=== PATIENT | female | born 1955 | race Caucasian/White ===

== ENCOUNTER 2018-06-26 12:56 | Inpatient (IN) ==
[2018-06-26] MEDS ORDERED: Labetalol HCl Inj 100 MG/20 ML Vial IV.PUSH ONE ×2 (13:19→16:15)
--- NOTE | 2018-06-26 13:26 | ED ---
HPI General Chief complaint: Weakness Stated complaint: confusion Time Seen by Provider: 06/26/18 13:12 History of Present Illness HPI narrative: This is a 63-year-old female who presents via EMS. According to report for the past week the patient has been confused, had a decreased appetite and generalized weakness. The patient lives with her . The patient is currently complaining of generalized weakness. She has no other focal complaints. He is noted to be hypertensive. She is noted to smell strongly of urine. She is unable to provide much additional history. Her primary care physician is Dr. Gallegos. Symptoms are moderate to severe, duration 1 week, no obvious aggravating or alleviating factors. Related Data Home Medications Medication Instructions Recorded Confirmed No Known Home Medications 06/26/18 06/26/18 Allergies Allergy/AdvReac Type Severity Reaction Status Date / Time codeine Allergy ALELRGY Verified 06/26/18 13:19 Review of Systems ROS Unobtainable ROS Unobtainable: other (History is limited secondary to patient condition) [facility] Medical History Medical History Medical history unknown (Acute) Social History Social History Second Hand Smoke Exposure: No Smoking Status: Cognitive impairment Tobacco Type: Cigarettes How Often Do You Have a Drink Containing Alcohol: Unable to Obtain Recent Travel in [facility] within the Last 8 Weeks: No Recent Out of Country Travel within the Last 8 Weeks: No Exam Narrative Exam Narrative: GENERAL: This is a well-developed well-nourished female in no acute distress. She is alert to person. She does not know what city she is in. She does not know what year it is. She knows her birthdate. SKIN: Warm and dry. No pressure ulcers noted. HEAD: Atraumatic. Normocephalic. EYES: Pupils equal and round. No scleral icterus. No injection or drainage. ENT: No nasal bleeding or discharge. Mucous membranes pink and moist. NECK: Trachea midline. No JVD. CARDIOVASCULAR: Regular rate and rhythm. No murmur appreciated. RESPIRATORY: No accessory muscle use. Clear to auscultation. Breath sounds equal bilaterally. GASTROINTESTINAL: Abdomen soft, non-tender, nondistended. Hepatic and splenic margins not palpable. MUSCULOSKELETAL: No obvious deformities. No clubbing. No cyanosis. No edema. NEUROLOGICAL: Awake and alert. No obvious cranial nerve deficits. Motor grossly within normal limits. Normal speech. The patient is able to move all extremities with no difficulty. Course Initial Documented Vital Signs Temperature 98.7 F 06/26/18 13:09 Respiratory Rate 18 06/26/18 13:09 Blood Pressure 184/83 H 06/26/18 13:09 Pulse Oximetry 98 06/26/18 13:09 Last Documented Vital Signs Temperature 98.8 F 06/26/18 14:43 Pulse Rate 71 06/26/18 14:43 Respiratory Rate 18 06/26/18 14:43 Blood Pressure 145/86 H 06/26/18 14:43 Pulse Oximetry 98 06/26/18 13:40 Medical Decision Making CAMILA Attestation CAMILA supervised visit: Yes Attestation: I, Dr. Bergman, have reviewed the advance practice practitioner's documentation and am in agreement, met with the patient face to face, made the diagnosis, and the medical decision making was done by me. *My assessment and Findings: Patient seen and evaluated with PA, please see PA notes for further details. She is here because her states that she has been eating and drinking well, more disoriented and weak than usual, and more lethargic than usual. She smells strongly of urine. It appears that he is now not able to take care of her at home, worsened within the last few days. Altered mental status workup was initiated including cat scanning. Planning to hydrate, control blood pressure, and admit for further evaluation and treatment. MDM Narrative Medical decision making narrative: hypertensive urgency.Patient was placed on ECG monitoring pulse oximetry. A 12-lead EKG was obtained. Lab work, CT the brain, chest x-ray, cath urine specimen obtained. The patient is noted to be hypertensive, 20 mg labetalol administered. The patient's lab work is been reviewed. Potassium is 2.9, 40 mEq oral potassium and 10 mEq IV potassium ordered. GFR is 38. Urinalysis is consistent with UTI, IV Rocephin initiated. CT the brain reveals no acute abnormalities. The patient's blood pressure improved. At this point time the plan would be to admit the patient for altered mental status, UTI, hypokalemia, hypertensive urgency. Discussed with Dr. Toussaint who was agreeable with admission. Medical Screen Exam Complete: Yes Emergency Medical Condition: Yes Differential Diagnosis Differential Diagnosis: UTI, CVA, TIA, hypertensive emergency, electrolyte abnormality, hypoglycemia, dehydration, sepsis, delerium Lab Data Result diagrams: 06/26/18 13:30 06/26/18 13:35 Lab Results 06/26/18 06/26/18 06/26/18 Range/Units 13:30 13:30 13:35 WBC 7.9 (4.0-11.0) th/mm3 RBC 3.85 L (4.00-5.30) mil/mm3 Hgb 12.0 (11.6-15.3) gm/dL Hct 36.0 (35.0-46.0) % MCV 93.6 (80.0-100.0) fL MCH 31.3 (27.0-34.0) pg MCHC 33.4 (32.0-36.0) % RDW 14.4 (11.6-17.2) % Plt Count 172 (150-450) th/mm3 MPV 7.8 (7.0-11.0) fL Neut % (Auto) 70.8 H (16.0-70.0) % Lymph % (Auto) 17.7 (9.0-44.0) % [place] % (Auto) 8.7 H (0.0-8.0) % Eos % (Auto) 1.9 (0.0-4.0) % Baso % (Auto) 0.9 (0.0-2.0) % Neut # (Auto) 5.6 (1.8-7.7) th/mm3 Lymph # (Auto) 1.4 (1.0-4.8) th/mm3 [place] # (Auto) 0.7 (0.0-0.9) th/mm3 Eos # (Auto) 0.2 (0.0-0.4) th/mm3 Baso # (Auto) 0.1 (0.0-0.2) th/mm3 WBC Differential . Differential Comment Auto diff final Sodium 142 (136-145) meq/L Potassium 2.9 L* (3.5-5.1) meq/L Chloride 108 H (98-107) meq/L Carbon Dioxide 26.8 (21.0-32.0) meq/L Anion Gap 7 (5-15) meq/L BUN 19 H (7-18) mg/dL Creatinine 1.39 H (0.50-1.00) mg/dL Estimated GFR 38 L (>89) mL/min Random Glucose 83 (74-106) mg/dL Lactic Acid (0.4-2.0) mmol/L Calcium 8.4 L (8.5-10.1) mg/dL Total Bilirubin 0.8 (0.2-1.0) mg/dL AST 8 L (15-37) U/L ALT 10 (10-53) U/L Alkaline Phosphatase 84 (45-117) U/L Ammonia (11-32) mcmol/L Total Creatine Kinase 24 L (26-192) U/L Troponin I 0.02 (0.02-0.05) ng/mL Total Protein 6.9 (6.4-8.2) g/dL Albumin 3.0 L (3.4-5.0) g/dL Urine Color Yellow (Yellw/Straw) Urine Clarity Hazy H (Clear) Urine pH 6.0 (5.0-8.5) Ur Specific [place] 1.013 (1.002-1.035) Urine Protein Negative (Neg-Trace) mg/dL Urine Glucose (UA) Negative (Negative) mg/dL Urine Ketones Negative (Negative) mg/dL Urine Occult Blood Small H (Negative) Urine Nitrate Negative (Negative) Urine Bilirubin Negative (Negative) Urine Urobilinogen Less than 2 (Less than 2) mg/dL Ur Leukocyte Esterase Moderate H (Negative) Urine RBC 2 (0-3) /hpf Urine WBC 26 H (0-5) /hpf Ur Squamous Epith Cells 1 (0-5) /hpf Urine Bacteria Many H (None) /hpf Urine Mucus Few H (Occasional) /lpf Urine Yeast Few H (None) /hpf Micro UA Comment Cath-culture ind Ur Microscopic Review Not Reportable Urine Culture Comments Cath-cult indicated 06/26/18 06/26/18 Range/Units 13:35 13:35 WBC (4.0-11.0) th/mm3 RBC (4.00-5.30) mil/mm3 Hgb (11.6-15.3) gm/dL Hct (35.0-46.0) % MCV (80.0-100.0) fL MCH (27.0-34.0) pg MCHC (32.0-36.0) % RDW (11.6-17.2) % Plt Count (150-450) th/mm3 MPV (7.0-11.0) fL Neut % (Auto) (16.0-70.0) % Lymph % (Auto) (9.0-44.0) % [place] % (Auto) (0.0-8.0) % Eos % (Auto) (0.0-4.0) % Baso % (Auto) (0.0-2.0) % Neut # (Auto) (1.8-7.7) th/mm3 Lymph # (Auto) (1.0-4.8) th/mm3 [place] # (Auto) (0.0-0.9) th/mm3 Eos # (Auto) (0.0-0.4) th/mm3 Baso # (Auto) (0.0-0.2) th/mm3 WBC Differential Differential Comment Sodium (136-145) meq/L Potassium (3.5-5.1) meq/L Chloride (98-107) meq/L Carbon Dioxide (21.0-32.0) meq/L Anion Gap (5-15) meq/L BUN (7-18) mg/dL Creatinine (0.50-1.00) mg/dL Estimated GFR (>89) mL/min Random Glucose (74-106) mg/dL Lactic Acid 0.6 (0.4-2.0) mmol/L Calcium (8.5-10.1) mg/dL Total Bilirubin (0.2-1.0) mg/dL AST (15-37) U/L ALT (10-53) U/L Alkaline Phosphatase (45-117) U/L Ammonia 13 (11-32) mcmol/L Total Creatine Kinase (26-192) U/L Troponin I (0.02-0.05) ng/mL Total Protein (6.4-8.2) g/dL Albumin (3.4-5.0) g/dL Urine Color (Yellw/Straw) Urine Clarity (Clear) Urine pH (5.0-8.5) Ur Specific [place] (1.002-1.035) Urine Protein (Neg-Trace) mg/dL Urine Glucose (UA) (Negative) mg/dL Urine Ketones (Negative) mg/dL Urine Occult Blood (Negative) Urine Nitrate (Negative) Urine Bilirubin (Negative) Urine Urobilinogen (Less than 2) mg/dL Ur Leukocyte Esterase (Negative) Urine RBC (0-3) /hpf Urine WBC (0-5) /hpf Ur Squamous Epith Cells (0-5) /hpf Urine Bacteria (None) /hpf Urine Mucus (Occasional) /lpf Urine Yeast (None) /hpf Micro UA Comment Ur Microscopic Review Urine Culture Comments Imaging Data Radiologist's impression: Chest X-Ray 06/26/18 13:19 CONCLUSION: Mildly prominent cardiac silhouette. No other acute cardiopulmonary disease identified. Head CT 06/26/18 13:19 CONCLUSION: 1. No acute intracranial findings. 2. Prominent chronic ischemic change. . Discharge Plan Discharge Disposition Patient Disposition: 30 Still Patient Discharge Condition Condition: Stable Discharge Details Diagnosis: Altered mental status, Acute UTI, Hypokalemia, Hypertensive urgency Physicians Team ED Provider: Jet Bergman ED Midlevel Provider: Jayesh Ku Primary Care Provider: Ko Gallegos Rxs /Orders / Referrals /Forms Prescriptions: No Action No Known Home Medications RF: 0 Status ED Status: Admitted Patient
[2018-06-26 13:59] LABS: Baso # (Auto) 0.1 th/mm3 (0.0-0.2); Baso % (Auto) 0.9 % (0.0-2.0); Eos # (Auto) 0.2 th/mm3 (0.0-0.4); Eos % (Auto) 1.9 % (0.0-4.0); Lymph # (Auto) 1.4 th/mm3 (1.0-4.8); Lymph % (Auto) 17.7 % (9.0-44.0); Mean Corpuscular HGB Conc 33.4 % (32.0-36.0); Mean Corpuscular Hemoglobin 31.3 pg (27.0-34.0); Mean Corpuscular Volume 93.6 fL (80.0-100.0); Mean Platelet Volume 7.8 fL (7.0-11.0); Mono # (Auto) 0.7 th/mm3 (0.0-0.9); Mono % (Auto) 8.7 % (0.0-8.0); Neut # (Auto) 5.6 th/mm3 (1.8-7.7); Neut % (Auto) 70.8 % (16.0-70.0); Platelet Count 172 th/mm3 (150-450); Red Blood Count 3.85 mil/mm3 (4.00-5.30); Red Cell Distribution Width 14.4 % (11.6-17.2); White Blood Count 7.9 th/mm3 (4.0-11.0)
[2018-06-26 14:30] LABS: Bacteria,Urine Many /hpf; Bilirubin,Urine Negative (Negative); Clarity,Urine Hazy (Clear); Color,Urine Yellow (Yellw/Straw); Glucose,Urine (UA) Negative (Negative); Leukocyte Esterase,Urine Moderate (Negative); Mucus,Urine Few /lpf (Occasional); Nitrite,Urine Negative (Negative); Specific Gravity,Urine 1.013 (1.002-1.035); Squamous Epithelial Cell,Urine 1 /hpf (0-5)
--- NOTE | 2018-06-26 14:30 | CT ---
EXAM DATE: 06/26/2018 2:16 PM EDT AGE/SEX: 63 years / Female INDICATIONS: Altered mental status. CLINICAL DATA: This is the patient's initial encounter. Patient reports that signs and symptoms have been present for 1 day and indicates a pain score of 0/10. MEDICAL/SURGICAL HISTORY: None. None. RADIATION DOSE: 56.35 CTDI (mGy) COMPARISON: No prior exams available for comparison. TECHNIQUE: CT of the head without contrast. Using automated exposure control and adjustment of the mA and/or kV according to patient size, radiation dose was kept as low as reasonably achievable to ob tain optimal diagnostic quality images. DICOM format image data is available electronically for revi ew and comparison. FINDINGS: Cerebrum: The ventricles are normal for age. No evidence of midline shift, mass lesion, hemorrhage or acute infarction. No extraaxial fluid collections are seen. Prominent symmetric periventricular w yolande matter hypodensity indicating chronic small vessel ischemic change. Encephalomalacia of the left cerebellar hemisphere posteriorly. Posterior Fossa: The cerebellum and brainstem are intact. The 4th ventricle is midline. The cerebe llopontine angle is unremarkable. Extracranial: The visualized portion of the orbits is intact. Skull: The calvaria is intact. No evidence of skull fracture. CONCLUSION: 1. No acute intracranial findings. 2. Prominent chronic ischemic change. . Electronically signed by: Zion Herbert MD 06/26/2018 2:29 PM EDT
[2018-06-26 14:31] LABS: Alanine Aminotransferase 10 U/L (10-53); Alkaline Phosphatase 84 U/L (45-117); Anion Gap 7 meq/L (5-15); Aspartate Aminotransferase 8 U/L (15-37); Blood Urea Nitrogen 19 mg/dL (7-18); Calcium 8.4 mg/dL (8.5-10.1); Carbon Dioxide 26.8 meq/L (21.0-32.0); Chloride 108 meq/L (98-107); Glomerular Filtration Rate 38 mL/min (>89); Glucose,Random 83 mg/dL (74-106); Sodium 142 meq/L (136-145); Total Protein 6.9 g/dL (6.4-8.2); Troponin I 0.02 ng/mL (0.02-0.05)
[2018-06-26 14:38] LABS: Creatine Kinase 24 U/L (26-192); Potassium 2.9 meq/L (3.5-5.1)
[2018-06-26] MEDS ORDERED: Potassium Chlor 10 mEq Premix 10 MEQ/100 ML PIGGYBACK IV.SIG ONE (14:41)
--- NOTE | 2018-06-26 14:48 | XR ---
EXAM DATE: 06/26/2018 2:31 PM EDT AGE/SEX: 63 years / Female INDICATIONS: Hypertension, weakness. CLINICAL DATA: This is the patient's initial encounter. Patient reports that signs and symptoms have been present for 2 days and indicates a pain score of 5/10. MEDICAL/SURGICAL HISTORY: Myocardial infarction. Cardiovascular disease, stroke. None. COMPARISON: No prior exams available for comparison. FINDINGS: Single AP view of the chest. Cardiac silhouette is mildly prominent. Lungs are clear. No evidence of pleural effusion or pneumothorax. CONCLUSION: Mildly prominent cardiac silhouette. No other acute cardiopulmonary disease identified. Electronically signed by: Zion Herbert MD 06/26/2018 2:46 PM EDT
[2018-06-26] MEDS ORDERED: Potassium Chloride 25 MEQ Effervescent Tablet PO ONE (14:58)
--- NOTE | 2018-06-26 16:14 | P.HP ---
History of Present Illness Primary Care Physician: Ko Gallegos MD History of Present Illness: 63-year-old white female being admitted for acute metabolic encephalopathy. History is limited as the patient is a poor historian. Obtained mainly from emergency room staff and . Patient was in her usual state of health until earlier this week when her says that she started being unable to ambulate with him despite her cane. Says that she now does not want to ambulate at all. Reportedly has a decreased appetite. Emergency room staff, she smelled of urine. Normally at baseline says she walks with him with a cane but has not done so for the past week. He denies headaches expressing any pain such as chest pain. Patient herself denies having any dysuria. says the patient has not had a major stroke 8 years ago. They are from [place] and they plan to go back there where they have more support with 2 of their grown children. Family history is unable to be obtained as the patient herself is an unreliable historian due to her chronic mental impairment. tells me that the patient used to be on medications for chronic medical conditions but says she was discontinued off of those in [place]. Emergency department patient was found to be hypertensive with a systolic greater than 220. Hypokalemic at 2.9. CT head was negative. Chest x-ray was straight and enlarged cardiac silhouette. They gave labetalol with improvement in her blood pressure which rebounded high again when I saw her with a diastolic around 115. Review of Systems All other systems reviewed negative except as stated in HPI [facility] - History History Provided By: Patient - Medical History Medical History: Medical History (Last Updated 06/26/18 @ 16:15 by Salinas Palumbo MD) CAD (coronary artery disease) CVA (cerebral vascular accident) Medical history unknown Pressure ulcer - Social History I have reviewed the patient's Social History: Yes - Tobacco History Second Hand Smoke Exposure: No Tobacco Use In Past 30 Days: No Smoking Status: Cognitive impairment Tobacco Type: Cigarettes - Alcohol History How Often Do You Have a Drink Containing Alcohol: Unable to Obtain - Travel History Recent Travel in the [place] Within the Last 8 Weeks: No Recent Travel Out of the Country Within the Last 8 Weeks: No - Immunization History Tetanus Immunization: Unable to Assess Hx Influenza Vaccine This Season: Unable to Assess Medications and Allergies Active Medications: Active Medications Labetalol HCl (Trandate Inj) 10 mg IV.PUSH ONCE ONE Stop: 06/26/18 16:16 Sodium Chloride (Ns Flush) 2 ml IV.FLUSH PRN PRN PRN Reason: FLUSH AFTER USING IV ACCESS Sodium Chloride (Ns Flush) 2 ml IV.FLUSH BID ALEC Allergies Allergy/AdvReac Type Severity Reaction Status Date / Time codeine Allergy ALELRGY Verified 06/26/18 13:19 Home Medications Medication Instructions Recorded Confirmed Type No Known Home Medications 06/26/18 06/26/18 History Exam Vital signs: Vital Signs 06/26/18 13:09 06/26/18 13:21 06/26/18 13:40 Temperature 98.7 F 98.7 F Pulse Rate 79 Respiratory Rate 18 18 Blood Pressure 184/83 H Pulse Oximetry 98 98 98 06/26/18 14:43 Temperature 98.8 F Pulse Rate 71 Respiratory Rate 18 Blood Pressure 145/86 H Pulse Oximetry Intake & Output 06/25/18 06/26/18 06/26/18 18:59 06:59 18:59 Intake Total 100 / 100 Balance 100 / 100 Intake: IV 100 / 100 Rocephin Inj 1,000 MG In NS Inj 100 / 100 100 ML @ 200 mls/hr IV.SIG ONCE ONE Rx#:[id number] Narrative: VS: afebrile GENERAL: Lying in bed, slowed responses, mild distress secondary to coldness SKIN: Warm and dry. EYES: Pupils equal and round. No scleral icterus. No injection or drainage. ENT: No nasal bleeding or discharge. CARDIOVASCULAR: Regular rate and rhythm. no murmurs RESPIRATORY: No accessory muscle use. Clear to auscultation. Breath sounds equal bilaterally. GASTROINTESTINAL: Abdomen soft, non-tender, nondistended. Extremities: No clubbing, cyanosis, or edema. No obvious deformities. MUSCULOSKELETAL: grossly intact ROM with 3/5 strength in upper and lower extremities proximally; adequate muscle bulk and tone for age and habitus NEUROLOGICAL: Awake and alert. No obvious cranial nerve deficits. No facial droop nor slurred speech noted. PSYCHIATRIC: Insight compromised. Oriented only to person, not oriented to place or time. Results - Labs CBC & Chem 7: 06/26/18 13:30 06/26/18 13:35 Labs: Laboratory Results - last 24 hr 06/26/18 06/26/18 06/26/18 13:30 13:30 13:35 WBC 7.9 RBC 3.85 L Hgb 12.0 Hct 36.0 MCV 93.6 MCH 31.3 MCHC 33.4 RDW 14.4 Plt Count 172 MPV 7.8 Neut % (Auto) 70.8 H Lymph % (Auto) 17.7 [place] % (Auto) 8.7 H Eos % (Auto) 1.9 Baso % (Auto) 0.9 Neut # (Auto) 5.6 Lymph # (Auto) 1.4 [place] # (Auto) 0.7 Eos # (Auto) 0.2 Baso # (Auto) 0.1 WBC Differential . Differential Comment Auto diff final Sodium 142 Potassium 2.9 L* Chloride 108 H Carbon Dioxide 26.8 Anion Gap 7 BUN 19 H Creatinine 1.39 H Estimated GFR 38 L Random Glucose 83 Lactic Acid Calcium 8.4 L Total Bilirubin 0.8 AST 8 L ALT 10 Alkaline Phosphatase 84 Ammonia Total Creatine Kinase 24 L Troponin I 0.02 Total Protein 6.9 Albumin 3.0 L Urine Color Yellow Urine Clarity Hazy H Urine pH 6.0 Ur Specific [place] 1.013 Urine Protein Negative Urine Glucose (UA) Negative Urine Ketones Negative Urine Occult Blood Small H Urine Nitrate Negative Urine Bilirubin Negative Urine Urobilinogen Less than 2 Ur Leukocyte Esterase Moderate H Urine RBC 2 Urine WBC 26 H Ur Squamous Epith Cells 1 Urine Bacteria Many H Urine Mucus Few H Urine Yeast Few H Micro UA Comment Cath-culture ind Ur Microscopic Review Not Reportable Urine Culture Comments Cath-cult indicated 06/26/18 06/26/18 13:35 13:35 WBC RBC Hgb Hct MCV MCH MCHC RDW Plt Count MPV Neut % (Auto) Lymph % (Auto) [place] % (Auto) Eos % (Auto) Baso % (Auto) Neut # (Auto) Lymph # (Auto) [place] # (Auto) Eos # (Auto) Baso # (Auto) WBC Differential Differential Comment Sodium Potassium Chloride Carbon Dioxide Anion Gap BUN Creatinine Estimated GFR Random Glucose Lactic Acid 0.6 Calcium Total Bilirubin AST ALT Alkaline Phosphatase Ammonia 13 Total Creatine Kinase Troponin I Total Protein Albumin Urine Color Urine Clarity Urine pH Ur Specific [place] Urine Protein Urine Glucose (UA) Urine Ketones Urine Occult Blood Urine Nitrate Urine Bilirubin Urine Urobilinogen Ur Leukocyte Esterase Urine RBC Urine WBC Ur Squamous Epith Cells Urine Bacteria Urine Mucus Urine Yeast Micro UA Comment Ur Microscopic Review Urine Culture Comments - Imaging Impressions Chest X-Ray 06/26/18 13:19 CONCLUSION: Mildly prominent cardiac silhouette. No other acute cardiopulmonary disease identified. Head CT 06/26/18 13:19 CONCLUSION: 1. No acute intracranial findings. 2. Prominent chronic ischemic change. . Caprini VTE Risk Assessment Caprini VTE Risk Assessment: Moderate/High Risk (score >= 2) Caprini Risk Assessment Model: Point Value = 1 Point Value = 2 Point Value = 3 Point Value = 5 Age 41-60 Minor surgery BMI > 25 kg/m2 Swollen legs Varicose veins or History of unexplained or recurrent spontaneous Oral contraceptives or hormone replacement Sepsis (< 1 month) Serious lung disease, including pneumonia (< 1 month) Abnormal pulmonary function Acute myocardial infarction Congestive heart failure (< 1 month) History of inflammatory bowel disease Medical patient at bed rest Age 61-74 Arthroscopic surgery Major open surgery (> 45 min) Laparoscopic surgery (> 45 min) Malignancy Confined to bed (> 72 hours) Immobilizing plaster cast Central venous access Age >= 75 History of VTE Family history of VTE Factor V Leiden Prothrombin [id number] Lupus anticoagulant Anticardiolipin antibodies Elevated serum homocysteine Heparin-induced thrombocytopenia Other congenital or acquired thrombophilia Stroke (< 1 month) Elective arthroplasty Hip, pelvis, or leg fracture Acute spinal cord injury (< 1 month) Prophylaxis Regimen: Total Risk Factor Score Risk Level Prophylaxis Regimen 0-1 Low Early ambulation 2 Moderate Order ONE of the following: *Sequential Compression Device (SCD) *Heparin 5000 units SQ BID 3-4 Higher Order ONE of the following medications: *Heparin 5000 units SQ TID *Enoxaparin/Lovenox 40 mg SQ daily (WT < 150 kg, CrCl > 30 mL/min) *Enoxaparin/Lovenox 30 mg SQ daily (WT < 150 kg, CrCl > 10-29 mL/min) *Enoxaparin/Lovenox 30 mg SQ BID (WT < 150 kg, CrCl > 30 mL/min) AND/OR *Sequential Compression Device (SCD) 5 or more Highest Order ONE of the following medications: *Heparin 5000 units SQ TID (Preferred with Epidurals) *Enoxaparin/Lovenox 40 mg SQ daily (WT < 150 kg, CrCl > 30 mL/min) *Enoxaparin/Lovenox 30 mg SQ daily (WT < 150 kg, CrCl > 10-29 mL/min) *Enoxaparin/Lovenox 30 mg SQ BID (WT < 150 kg, CrCl > 30 mL/min) AND *Sequential Compression Device (SCD) Assessment and Plan - Plan 63-year-old white female being admitted for metabolic encephalopathy Encephalopathy Generalized weakness Multifactorial with acute metabolic and hypertensive elements involved superimposed upon chronic impairment from the patient's prior strokes. We will give IV Vasotec as needed, starting low-dose scheduled Coreg for now -f/u UC, continue rocephin for now -VS -PT/ST/OT eval hypokalemia Possible acute kidney injury Unknown baseline, creatinine 1.39, gentle IV hydration, recheck in a.m. -Replacing potassium intravenously and .p.o., recheck BMP in a.m. Coronary artery disease/hypertension Starting low-dose baby aspirin, and low-dose Coreg as well as nighttime Lipitor -Given enlarged cardiac silhouette and lack of cardiac meds per knowledge, will obtain echocardiogram to look for any heart failure elements History of strokes Chronic cognitive impairment -hx of CVAs, ordering b12 and tsh ordered Starting baby aspirin as above and Lipitor
[2018-06-26 17:43] LABS: Thyroid Stimulating Hormone 0.883 uIU/mL (0.358-3.740); Vitamin B12 217 pg/mL (193-986)
[2018-06-26] MEDS: Potassium Chloride Inj 10 MEQ in Sod Chloride 0.9% Inj 1,000 ML IV.CONT SCH (17:48)
[2018-06-27 07:00] LABS: Calcium 8.1 mg/dL (8.5-10.1); Carbon Dioxide 24.2 meq/L (21.0-32.0); Potassium 3.3 meq/L (3.5-5.1)
--- NOTE | 2018-06-27 13:40 | P.PNIM ---
Subjective Interval history: Discussed with the patient's at bedside. She remains very weak. Not eating much. reports at baseline she does not talk much. Patient answers simple yes or no questions. She has no complaints. Physical Exam Vital signs: Vital Signs 06/26/18 13:40 06/26/18 14:43 06/26/18 16:36 Temperature 98.8 F Pulse Rate 71 80 Respiratory Rate 18 18 Blood Pressure 145/86 H 152/89 H Pulse Oximetry 98 06/26/18 17:39 06/26/18 20:00 06/27/18 00:00 Temperature 98.7 F 98.7 F 98.6 F Pulse Rate 71 69 71 Respiratory Rate 16 18 18 Blood Pressure 145/84 H 175/78 H 179/81 H Pulse Oximetry 96 99 96 06/27/18 01:30 06/27/18 04:00 06/27/18 08:00 Temperature 98.7 F 98.3 F Pulse Rate 68 71 Respiratory Rate 18 18 Blood Pressure 162/80 H 150/98 H 181/86 H Pulse Oximetry 95 95 06/27/18 12:00 Temperature 98.5 F Pulse Rate 73 Respiratory Rate 18 Blood Pressure 227/103 H Pulse Oximetry 96 Intake & Output 06/26/18 06/27/18 06/27/18 18:59 06:59 18:59 Intake Total 200 / 200 Balance 200 / 200 Weight 70.3 kg Intake: IV 200 / 200 KCl 10 mEq Premix Inj 10 meq In 100 / 100 100 ml @ 100 mls/hr IV.SIG ONCE ONE Rx#:[id number] Rocephin Inj 1,000 MG In NS Inj 100 / 100 100 ML @ 200 mls/hr IV.SIG ONCE ONE Rx#:[id number] Other: # Incontinent Voids 2 Narrative: GENERAL: Patient appears much older than stated age. CARDIOVASCULAR: Normal rate and regular rhythm without murmurs, gallops, or rubs. RESPIRATORY: Good respiratory efforts. Breath sounds equal and clear to auscultation bilaterally. GASTROINTESTINAL: Abdomen soft, non-tender, non-distended. Normal active bowel sounds MUSCULOSKELETAL: Extremities without cyanosis, or edema. NEURO: Alert & Oriented to self. Profound generalized weakness PSYCH: Flat affect. Results - Labs CBC & Chem 7: 06/26/18 13:30 06/27/18 05:50 Laboratory Results - last 24 hr 06/26/18 06/26/18 06/26/18 13:30 13:30 13:35 WBC 7.9 RBC 3.85 L Hgb 12.0 Hct 36.0 MCV 93.6 MCH 31.3 MCHC 33.4 RDW 14.4 Plt Count 172 MPV 7.8 Neut % (Auto) 70.8 H Lymph % (Auto) 17.7 Runnels % (Auto) 8.7 H Eos % (Auto) 1.9 Baso % (Auto) 0.9 Neut # (Auto) 5.6 Lymph # (Auto) 1.4 Runnels # (Auto) 0.7 Eos # (Auto) 0.2 Baso # (Auto) 0.1 WBC Differential . Differential Comment Auto diff final Sodium 142 Potassium 2.9 L* Chloride 108 H Carbon Dioxide 26.8 Anion Gap 7 BUN 19 H Creatinine 1.39 H Estimated GFR 38 L Random Glucose 83 Lactic Acid Calcium 8.4 L Magnesium Total Bilirubin 0.8 AST 8 L ALT 10 Alkaline Phosphatase 84 Ammonia Total Creatine Kinase 24 L Troponin I 0.02 Total Protein 6.9 Albumin 3.0 L Vitamin B12 217 TSH 0.883 Urine Color Yellow Urine Clarity Hazy H Urine pH 6.0 Ur Specific Regina 1.013 Urine Protein Negative Urine Glucose (UA) Negative Urine Ketones Negative Urine Occult Blood Small H Urine Nitrate Negative Urine Bilirubin Negative Urine Urobilinogen Less than 2 Ur Leukocyte Esterase Moderate H Urine RBC 2 Urine WBC 26 H Ur Squamous Epith Cells 1 Urine Bacteria Many H Urine Mucus Few H Urine Yeast Few H Micro UA Comment Cath-culture ind Ur Microscopic Review Not Reportable Urine Culture Comments Cath-cult indicated 06/26/18 06/26/18 06/26/18 13:35 13:35 13:55 WBC RBC Hgb Hct MCV MCH MCHC RDW Plt Count MPV Neut % (Auto) Lymph % (Auto) Runnels % (Auto) Eos % (Auto) Baso % (Auto) Neut # (Auto) Lymph # (Auto) Runnels # (Auto) Eos # (Auto) Baso # (Auto) WBC Differential Differential Comment Sodium Potassium Chloride Carbon Dioxide Anion Gap BUN Creatinine Estimated GFR Random Glucose Lactic Acid 0.6 Calcium Magnesium Total Bilirubin AST ALT Alkaline Phosphatase Ammonia 13 Total Creatine Kinase Troponin I Total Protein Albumin Vitamin B12 Cancelled TSH Cancelled Urine Color Urine Clarity Urine pH Ur Specific Regina Urine Protein Urine Glucose (UA) Urine Ketones Urine Occult Blood Urine Nitrate Urine Bilirubin Urine Urobilinogen Ur Leukocyte Esterase Urine RBC Urine WBC Ur Squamous Epith Cells Urine Bacteria Urine Mucus Urine Yeast Micro UA Comment Ur Microscopic Review Urine Culture Comments 06/27/18 06/27/18 05:50 05:50 WBC RBC Hgb Hct MCV MCH MCHC RDW Plt Count MPV Neut % (Auto) Lymph % (Auto) Runnels % (Auto) Eos % (Auto) Baso % (Auto) Neut # (Auto) Lymph # (Auto) Runnels # (Auto) Eos # (Auto) Baso # (Auto) WBC Differential Differential Comment Sodium 143 Potassium 3.3 L Chloride 111 H Carbon Dioxide 24.2 Anion Gap 8 BUN 18 Creatinine 1.19 H Estimated GFR 46 L Random Glucose 84 Lactic Acid Calcium 8.1 L Magnesium 1.9 Total Bilirubin AST ALT Alkaline Phosphatase Ammonia Total Creatine Kinase Troponin I Total Protein Albumin Vitamin B12 TSH Urine Color Urine Clarity Urine pH Ur Specific Regina Urine Protein Urine Glucose (UA) Urine Ketones Urine Occult Blood Urine Nitrate Urine Bilirubin Urine Urobilinogen Ur Leukocyte Esterase Urine RBC Urine WBC Ur Squamous Epith Cells Urine Bacteria Urine Mucus Urine Yeast Micro UA Comment Ur Microscopic Review Urine Culture Comments Microbiology 06/26/18 13:30 Catheterized Urine Urine Culture - Preliminary gram negative rods 06/26/18 13:30 Blood - Peripheral Aerobic Blood Culture - Preliminary No growth in 1 day 06/26/18 13:30 Blood - Peripheral Anaerobic Blood Culture - Preliminary No growth in 1 day 06/26/18 13:30 Blood - Peripheral Aerobic Blood Culture - Preliminary No growth in 1 day 06/26/18 13:30 Blood - Peripheral Anaerobic Blood Culture - Preliminary No growth in 1 day - Imaging Impressions Chest X-Ray 06/26/18 13:19 CONCLUSION: Mildly prominent cardiac silhouette. No other acute cardiopulmonary disease identified. Head CT 06/26/18 13:19 CONCLUSION: 1. No acute intracranial findings. 2. Prominent chronic ischemic change. . Assessment and Plan - Plan 63-year-old white female admitted for acute metabolic encephalopathy Encephalopathy Generalized weakness Multifactorial with acute metabolic and hypertensive elements involved superimposed upon chronic impairment from the patient's prior strokes.. -f/u UC, continue Rocephin for now -VS -PT/ST/OT eval Gram-negative UTI: - Continue Rocephin. Follow cultures. hypokalemia Possible acute kidney injury Unknown baseline, creatinine 1.39, gentle IV hydration,. -Replace K. Follow-up BMP in a.m. Coronary artery disease/hypertension Started on low-dose baby aspirin, and low-dose Coreg as well as nighttime Lipitor -Given enlarged cardiac silhouette and lack of cardiac meds per knowledge, echocardiogram pending to look for any heart failure elements History of strokes Chronic cognitive impairment. At baseline the patient does not interact much. reports she has been declining lately. -hx of CVAs, b12 and tsh ordered Starting baby aspirin as above and Lipitor -May have CVA induced dementia. - Physical therapy/OT to evaluate. GI prophylaxis: PPI. Stool softener PRN constipation. DVT PPx: Lovenox Discharge Planning: May need SNF placement.
[2018-06-27] MEDS: Lisinopril 10 MG Tablet PO SCH ×2 (14:18→21:00)
--- NOTE | 2018-06-27 15:33 | ECHRPT ---
Indication: CARDIOMYOPATHY CONCLUSIONS The left ventricular systolic function is normal with an estimated ejection fraction in the range of 60-65%. Normal left ventricular size. Wall thickness is measured at the upper limits of normal. No regional wall motion abnormalities are present. Mild to moderate mitral valve regurgitation. BP: / HR: Rhythm: Sinus MEASUREMENTS (Male / Female) Normal Values Technical Quality:Good 2D ECHO LV Diastolic Diameter PLAX 6.3 cm 4.2 - 5.9 / 3.9 - 5.3 cm LV Systolic Diameter PLAX 4.4 cm IVS Diastolic Thickness 1.2 cm 0.6 - 1.0 / 0.6 - 0.9 cm LVPW Diastolic Thickness 1.2 cm 0.6 - 1.0 / 0.6 - 0.9 cm LV Relative Wall Thickness 0.4 RV Internal Dim ED PLAX 2.4 cm LVOT Diameter 1.8 cm LA Systolic Diameter LX 3.1 cm 3.0 - 4.0 / 2.7 - 3.8 cm LV Ejection Fraction MOD 4C 62.8 % LV Ejection Fraction 4C AL 65.1 % M-MODE Aortic Root Diameter MM 2.5 cm LA Systolic Diameter MM 3.0 cm LA Ao Ratio MM 1.2 AV Cusp Separation MM 1.7 cm DOPPLER AV Peak Velocity 172.0 cm/s AV Peak Gradient 11.8 mmHg LVOT Peak Velocity 114.0 cm/s LVOT Peak Gradient 5.2 mmHg AV Area Cont Eq pk 1.7 cm MV Peak Velocity 236.0 cm/s MV Peak Gradient 22.3 mmHg MV Mean Velocity 120.0 cm/s MV Mean Gradient 7.0 mmHg MV Area PHT 1.7 cm Mitral E Point Velocity 89.8 cm/s Mitral A Point Velocity 171.0 cm/s Mitral E to A Ratio 0.5 PV Peak Velocity 84.2 cm/s PV Peak Gradient 2.8 mmHg FINDINGS LEFT VENTRICLE Doppler parameters are consistent with impaired left ventricular relaxtion (grade 1 diastolic dysfun ction). The left ventricular systolic function is normal with an estimated ejection fraction in the range of 60-65%. Normal left ventricular size. Wall thickness is measured at the upper limits of normal. No regional wall motion abnormalities are present. RIGHT VENTRICLE Normal right ventricular size and systolic function. LEFT ATRIUM The left atrial size is normal. RIGHT ATRIUM The right atrial size is normal. ATRIAL SEPTUM Normal atrial septal thickness without atrial level shunting by limited color doppler interrogation. AORTA The aortic root and proximal ascending aorta are normal in size on limited imaging. MITRAL VALVE Structurally normal mitral valve. [id number] mitral valve regurgitation. AORTIC VALVE Trileaflet aortic valve. No aortic valve stenosis or regurgitation. TRICUSPID VALVE Structurally normal tricuspid valve. No tricuspid valve stenosis or regurgitation. PULMONARY VALVE The pulmonary valve is not well visualized. VESSELS The inferior vena cava is normal in size. PERICARDIUM No pericardial effusion. Hiwot Tillman MD (Electronically Signed) Final Date:27 June 2018 15:32
[2018-06-27] MEDS: Potassium Chloride Inj 10 MEQ in Sod Chloride 0.9% Inj 1,000 ML IV.CONT SCH (17:17)
--- NOTE | 2018-06-27 22:18 | ECG ---
Date Performed: 06/26/2018 Time Performed: 13:57:27 PTAGE: 63 years EKG: Sinus rhythm POSSIBLE LEFT ATRIAL ENLARGEMENT LEFT VENTRICULAR HYPERTROPHY AND ST-T CHANGE ABNORMAL ECG NO PREVIOUS TRACING DOCTOR: Hiwot Tillman Interpretating Date/Time 06/27/2018 22:12:42
[2018-06-28 07:03] LABS: Calcium 8.2 mg/dL (8.5-10.1); Potassium 3.5 meq/L (3.5-5.1)
[2018-06-28] MEDS: Lisinopril 10 MG Tablet PO SCH ×2 (08:06→21:45)
--- NOTE | 2018-06-28 13:29 | P.PNIM ---
Subjective Interval history: No acute issues overnight. Still not eating much. Blood pressure uncontrolled. Physical Exam Vital signs: Vital Signs 06/27/18 16:00 06/27/18 20:00 06/28/18 01:00 Temperature 98.8 F 98.7 F Pulse Rate 70 63 Respiratory Rate 18 18 Blood Pressure 203/94 H 134/76 129/67 Pulse Oximetry 96 98 06/28/18 04:00 06/28/18 08:00 Temperature 98.5 F 98.1 F Pulse Rate 65 62 Respiratory Rate 18 18 Blood Pressure 157/78 H 210/91 H Pulse Oximetry 95 97 Intake & Output 06/27/18 06/28/18 06/28/18 18:59 06:59 18:59 Intake Total 1105 / 1105 Balance 1105 / 1105 Weight 71.2 kg Intake: IV 1105 / 1105 KCl Inj 10 MEQ In NS Inj 1,000 1005 / 1005 ML @ 42 mls/hr IV.CONT .[id number] [facility] Rx#:[id number] Rocephin Inj 1,000 MG In NS Inj 100 / 100 100 ML @ 200 mls/hr IV.SIG Q24H [facility] Rx#:[id number] Other: # Incontinent Voids 2 Narrative: GENERAL: Patient appears much older than stated age. CARDIOVASCULAR: Normal rate and regular rhythm without murmurs, gallops, or rubs. RESPIRATORY: Good respiratory efforts. Breath sounds equal and clear to auscultation bilaterally. GASTROINTESTINAL: Abdomen soft, non-tender, non-distended. Normal active bowel sounds MUSCULOSKELETAL: Extremities without cyanosis, or edema. NEURO: Alert & Oriented to self. Profound generalized weakness PSYCH: Flat affect. Results - Labs CBC & Chem 7: 06/26/18 13:30 06/28/18 06:01 Laboratory Results - last 24 hr 06/28/18 06:01 Sodium 145 Potassium 3.5 Chloride 114 H Carbon Dioxide 21.0 Anion Gap 10 BUN 16 Creatinine 1.14 H Estimated GFR 48 L Random Glucose 84 Calcium 8.2 L Microbiology 06/26/18 13:30 Blood - Peripheral Aerobic Blood Culture - Preliminary No growth in 2 days 06/26/18 13:30 Blood - Peripheral Anaerobic Blood Culture - Preliminary 06/26/18 13:30 Blood - Peripheral Aerobic Blood Culture - Preliminary No growth in 2 days 06/26/18 13:30 Blood - Peripheral Anaerobic Blood Culture - Preliminary No growth in 2 days 06/26/18 13:30 Catheterized Urine Urine Culture - Final Klebsiella pneumoniae Assessment and Plan - Plan 63-year-old white female admitted for acute metabolic encephalopathy Encephalopathy Generalized weakness Multifactorial with acute metabolic and hypertensive elements involved superimposed upon chronic impairment from the patient's prior strokes.. -f/u UC, continue Rocephin for now -VS -PT/ST/OT eval Gram-negative UTI: - Continue Rocephin. Follow cultures. hypokalemia Possible acute kidney injury Unknown baseline, creatinine 1.39, gentle IV hydration,. -Replace K. Follow-up BMP in a.m. Coronary artery disease/hypertension Started on low-dose baby aspirin, and low-dose Coreg as well as nighttime Lipitor -Blood pressure uncontrolled. Increase lisinopril to 20 mg twice daily. Continue Coreg. - 2D echocardiogram unremarkable. History of strokes Chronic cognitive impairment. At baseline the patient does not interact much. reports she has been declining lately. 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 - Physical therapy/OT following GI prophylaxis: PPI. Stool softener PRN constipation. DVT PPx: Lovenox Discharge Planning: Will need SNF placement.
[2018-06-28] MEDS: Potassium Chloride Inj 10 MEQ in Sod Chloride 0.9% Inj 1,000 ML IV.CONT SCH (17:23)
[2018-06-29 07:27] LABS: Hematocrit 33.6 % (35.0-46.0); Hemoglobin 11.6 gm/dL (11.6-15.3); Mean Corpuscular HGB Conc 34.5 % (32.0-36.0); Mean Corpuscular Hemoglobin 31.6 pg (27.0-34.0); Mean Corpuscular Volume 91.7 fL (80.0-100.0); Mean Platelet Volume 8.1 fL (7.0-11.0); Platelet Count 164 th/mm3 (150-450); Red Blood Count 3.66 mil/mm3 (4.00-5.30); Red Cell Distribution Width 14.1 % (11.6-17.2); White Blood Count 8.9 th/mm3 (4.0-11.0)
[2018-06-29 07:45] LABS: Calcium 8.3 mg/dL (8.5-10.1); Carbon Dioxide 22.9 meq/L (21.0-32.0); Potassium 3.4 meq/L (3.5-5.1)
[2018-06-29] MEDS: Lisinopril 10 MG Tablet PO SCH (08:53)
--- NOTE | 2018-06-29 12:34 | P.PNIM ---
Subjective Interval history: 63-year-old white female being admitted for acute metabolic encephalopathy. History is limited as the patient is a poor historian. Obtained mainly from emergency room staff and . Patient was in her usual state of health until earlier this week when her says that she started being unable to ambulate with him despite her cane. Says that she now does not want to ambulate at all. Reportedly has a decreased appetite. Emergency room staff, she smelled of urine. Normally at baseline says she walks with him with a cane but has not done so for the past week. He denies headaches expressing any pain such as chest pain. Patient herself denies having any dysuria. says the patient has not had a major stroke 8 years ago. They are from [place] and they plan to go back there where they have more support with 2 of their grown children. Family history is unable to be obtained as the patient herself is an unreliable historian due to her chronic mental impairment. tells me that the patient used to be on medications for chronic medical conditions but says she was discontinued off of those in [place]. Emergency department patient was found to be hypertensive with a systolic greater than 220. Hypokalemic at 2.9. CT head was negative. Chest x-ray was straight and enlarged cardiac silhouette. They gave labetalol with improvement in her blood pressure which rebounded high again when I saw her with a diastolic around 115. 9-15 Discussed with the patient's at bedside. She remains very weak. Not eating much. reports at baseline she does not talk much. Patient answers simple yes or no questions. She has no complaints. 9-16 No acute issues overnight. Still not eating much. Blood pressure uncontrolled. 9-17 BLOOD PRESSURE NOT AT GOAL DW RN AND PT TODAY WILL NEED MORE MEDICATIONS [place] NEED SNF [place] RN AND PT AND CM AND FAMILY ADD NORVASC 5MG PO DAILY ADD PRN CATAPRES Physical Exam Vital signs: Vital Signs 06/28/18 16:00 06/28/18 20:00 06/29/18 00:00 Temperature 98.5 F 98.7 F 98.5 F Pulse Rate 58 L 56 L 58 L Respiratory Rate 18 20 20 Blood Pressure 160/80 H 153/82 H 144/95 H Pulse Oximetry 95 97 97 06/29/18 04:00 06/29/18 08:00 Temperature 98.2 F 98.2 F Pulse Rate 60 64 Respiratory Rate 18 17 Blood Pressure 169/81 H 191/88 H Pulse Oximetry 96 95 Intake & Output 06/28/18 06/29/18 06/29/18 18:59 06:59 18:59 Intake Total 1105 / 1105 480 / 480 Output Total 300 / 300 Balance 1105 / 1105 180 / 180 Weight 73.8 kg Intake: IV 1105 / 1105 KCl Inj 10 MEQ In NS Inj 1,000 1005 / 1005 ML @ 42 mls/hr IV.CONT .[id number] [facility] Rx#:[id number] Rocephin Inj 1,000 MG In NS Inj 100 / 100 100 ML @ 200 mls/hr IV.SIG Q24H [facility] Rx#:[id number] Oral 480 / 480 Output: Urine 300 / 300 Other: # Incontinent Voids 1 1 Date of Last Bowel Movement 06/28/18 Narrative: GENERAL: Patient appears much older than stated age. CARDIOVASCULAR: Normal rate and regular rhythm without murmurs, gallops, or rubs. S1, S2 NO S3 OR S4 RESPIRATORY: Good respiratory efforts. Breath sounds equal and clear to auscultation bilaterally. GASTROINTESTINAL: Abdomen soft, non-tender, non-distended. Normal active bowel sounds OBESE MUSCULOSKELETAL: Extremities without cyanosis, or edema. NEURO: Alert & Oriented to self. Profound generalized weakness PSYCH: Flat affect. Results - Labs CBC & Chem 7: 06/29/18 06:32 06/29/18 06:32 Laboratory Results - last 24 hr 06/29/18 06/29/18 06:32 06:32 WBC 8.9 RBC 3.66 L Hgb 11.6 Hct 33.6 L MCV 91.7 MCH 31.6 MCHC 34.5 RDW 14.1 Plt Count 164 MPV 8.1 Sodium 142 Potassium 3.4 L Chloride 112 H Carbon Dioxide 22.9 Anion Gap 7 BUN 16 Creatinine 1.12 H Estimated GFR 49 L Random Glucose 89 Calcium 8.3 L Microbiology 06/26/18 13:30 Blood - Peripheral Aerobic Blood Culture - Preliminary No growth in 3 days 06/26/18 13:30 Blood - Peripheral Anaerobic Blood Culture - Preliminary gram positive cocci 06/28/18 10:54 Blood - Peripheral Aerobic Blood Culture - Preliminary No growth in 1 day 06/28/18 10:54 Blood - Peripheral Anaerobic Blood Culture - Preliminary No growth in 1 day 06/26/18 13:30 Blood - Peripheral Aerobic Blood Culture - Preliminary No growth in 3 days 06/26/18 13:30 Blood - Peripheral Anaerobic Blood Culture - Preliminary No growth in 3 days 06/26/18 13:30 Catheterized Urine Urine Culture - Final Klebsiella pneumoniae - Imaging Chest X-Ray 06/26/18 13:19 CONCLUSION: Mildly prominent cardiac silhouette. No other acute cardiopulmonary disease identified. Head CT 06/26/18 13:19 CONCLUSION: 1. No acute intracranial findings. 2. Prominent chronic ischemic change. . - Procedures NONE Assessment and Plan - Plan 63-year-old white female admitted for acute metabolic encephalopathy Encephalopathy Generalized weakness Multifactorial with acute metabolic and hypertensive elements involved superimposed upon chronic impairment from the patient's prior strokes.. -f/u UC, continue Rocephin for now -VS -PT/ST/OT eval Gram-negative UTI: KLEBSIELLA PNEUMONIAE - SWITCH TO CIPRO - SWITCH TO CIPRO AT DC Follow cultures. hypokalemia Possible acute kidney injury Unknown baseline, creatinine 1.39, gentle IV hydration,. -Replace K. Follow-up BMP in a.m. Coronary artery disease/hypertension Started on low-dose baby aspirin, and low-dose Coreg as well as nighttime Lipitor -Blood pressure uncontrolled. Increase lisinopril to 20 mg twice daily. Continue Coreg. - 2D echocardiogram unremarkable. History of strokes Chronic cognitive impairment. At baseline the patient does not interact much. reports she has been declining lately. 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 - Physical therapy/OT following GI prophylaxis: PPI. Stool softener PRN constipation. DVT PPx: Lovenox WILL NEED SNF Code Status: FULL CODE Discussed Condition With: RN AND PT AND CM AND FAMILY Discharge Planning: DC TO SNF TODAY
--- NOTE | 2018-06-29 12:40 | P.DS ---
Date of admission: 06/26/18 15:54 Primary care physician: Ko Gallegos MD Attending physician on discharge: Alfa John Anticipated date of discharge: 06/29/18 Brief History from admission: 63-year-old white female being admitted for acute metabolic encephalopathy. History is limited as the patient is a poor historian. Obtained mainly from emergency room staff and . Patient was in her usual state of health until earlier this week when her says that she started being unable to ambulate with him despite her cane. Says that she now does not want to ambulate at all. Reportedly has a decreased appetite. Emergency room staff, she smelled of urine. Normally at baseline says she walks with him with a cane but has not done so for the past week. He denies headaches expressing any pain such as chest pain. Patient herself denies having any dysuria. says the patient has not had a major stroke 8 years ago. They are from [place] and they plan to go back there where they have more support with 2 of their grown children. Family history is unable to be obtained as the patient herself is an unreliable historian due to her chronic mental impairment. tells me that the patient used to be on medications for chronic medical conditions but says she was discontinued off of those in [place]. Emergency department patient was found to be hypertensive with a systolic greater than 220. Hypokalemic at 2.9. CT head was negative. Chest x-ray was straight and enlarged cardiac silhouette. They gave labetalol with improvement in her blood pressure which rebounded high again when I saw her with a diastolic around 115. Patient update on day of discharge: 63-year-old white female being admitted for acute metabolic encephalopathy. History is limited as the patient is a poor historian. Obtained mainly from emergency room staff and . Patient was in her usual state of health until earlier this week when her says that she started being unable to ambulate with him despite her cane. Says that she now does not want to ambulate at all. Reportedly has a decreased appetite. Emergency room staff, she smelled of urine. Normally at baseline says she walks with him with a cane but has not done so for the past week. He denies headaches expressing any pain such as chest pain. Patient herself denies having any dysuria. says the patient has not had a major stroke 8 years ago. They are from [place] and they plan to go back there where they have more support with 2 of their grown children. Family history is unable to be obtained as the patient herself is an unreliable historian due to her chronic mental impairment. tells me that the patient used to be on medications for chronic medical conditions but says she was discontinued off of those in [place]. Emergency department patient was found to be hypertensive with a systolic greater than 220. Hypokalemic at 2.9. CT head was negative. Chest x-ray was straight and enlarged cardiac silhouette. They gave labetalol with improvement in her blood pressure which rebounded high again when I saw her with a diastolic around 115. 9-15 Discussed with the patient's at bedside. She remains very weak. Not eating much. reports at baseline she does not talk much. Patient answers simple yes or no questions. She has no complaints. 9-16 No acute issues overnight. Still not eating much. Blood pressure uncontrolled. 9-17 BLOOD PRESSURE NOT AT GOAL DW RN AND PT TODAY WILL NEED MORE MEDICATIONS [place] [facility] RN AND PT AND CM AND FAMILY ADD NORVASC 5MG PO DAILY ADD PRN CATAPRES DS: Diagnosis - Discharge Diagnosis (1) Acute UTI Status: Acute (2) Altered mental status Status: Acute (3) Hypertensive urgency Status: Chronic (4) Hypokalemia Status: Chronic DS: Medications - Discharge Medications Prescriptions: amlodipine [Norvasc] 5 mg PO DAILY #30 tab aspirin 81 mg PO DAILY #30 tab atorvastatin 40 mg PO HS #30 tab carvedilol [Coreg] 3.125 mg PO BID #62 tab ciprofloxacin HCl 500 mg PO Q12HR #14 tab clonidine HCl [Catapres] 0.1 mg PO Q6H PRN #120 tab PRN Reason: Hypertension lisinopril 20 mg PO BID #60 tab DS: Summary Hospital Course: 63-year-old white female being admitted for acute metabolic encephalopathy. History is limited as the patient is a poor historian. Obtained mainly from emergency room staff and . Patient was in her usual state of health until earlier this week when her says that she started being unable to ambulate with him despite her cane. Says that she now does not want to ambulate at all. Reportedly has a decreased appetite. Emergency room staff, she smelled of urine. Normally at baseline says she walks with him with a cane but has not done so for the past week. He denies headaches expressing any pain such as chest pain. Patient herself denies having any dysuria. says the patient has not had a major stroke 8 years ago. They are from [place] and they plan to go back there where they have more support with 2 of their grown children. Family history is unable to be obtained as the patient herself is an unreliable historian due to her chronic mental impairment. tells me that the patient used to be on medications for chronic medical conditions but says she was discontinued off of those in [place]. Emergency department patient was found to be hypertensive with a systolic greater than 220. Hypokalemic at 2.9. CT head was negative. Chest x-ray was straight and enlarged cardiac silhouette. They gave labetalol with improvement in her blood pressure which rebounded high again when I saw her with a diastolic around 115. 9-15 Discussed with the patient's at bedside. She remains very weak. Not eating much. reports at baseline she does not talk much. Patient answers simple yes or no questions. She has no complaints. 9-16 No acute issues overnight. Still not eating much. Blood pressure uncontrolled. 9-17 BLOOD PRESSURE NOT AT GOAL DW RN AND PT TODAY WILL NEED MORE MEDICATIONS [place] NEED SN[facility] [place] [facility] RN AND PT AND CM AND FAMILY ADD NORVASC 5MG PO DAILY ADD PRN CATAPRES - Time Spent with Patient Total time spent providing and/or coordinating discharge services: Greater than 30 minutes Exam Vital signs: Vital Signs 06/28/18 16:00 06/28/18 20:00 06/29/18 00:00 Temperature 98.5 F 98.7 F 98.5 F Pulse Rate 58 L 56 L 58 L Respiratory Rate 18 20 20 Blood Pressure 160/80 H 153/82 H 144/95 H Pulse Oximetry 95 97 97 06/29/18 04:00 06/29/18 08:00 Temperature 98.2 F 98.2 F Pulse Rate 60 64 Respiratory Rate 18 17 Blood Pressure 169/81 H 191/88 H Pulse Oximetry 96 95 Intake & Output 06/28/18 06/29/18 06/29/18 18:59 06:59 18:59 Intake Total 1105 / 1105 480 / 480 Output Total 300 / 300 Balance 1105 / 1105 180 / 180 Weight 73.8 kg Intake: IV 1105 / 1105 KCl Inj 10 MEQ In NS Inj 1,000 1005 / 1005 ML @ 42 mls/hr IV.CONT .[id number] [facility] Rx#:[id number] Rocephin Inj 1,000 MG In NS Inj 100 / 100 100 ML @ 200 mls/hr IV.SIG Q24H [facility] Rx#:[id number] Oral 480 / 480 Output: Urine 300 / 300 Other: # Incontinent Voids 1 1 Date of Last Bowel Movement 06/28/18 Narrative: GENERAL: Patient appears much older than stated age. CARDIOVASCULAR: Normal rate and regular rhythm without murmurs, gallops, or rubs. S1, S2 NO S3 OR S4 RESPIRATORY: Good respiratory efforts. Breath sounds equal and clear to auscultation bilaterally. GASTROINTESTINAL: Abdomen soft, non-tender, non-distended. Normal active bowel sounds OBESE MUSCULOSKELETAL: Extremities without cyanosis, or edema. NEURO: Alert & Oriented to self. Profound generalized weakness PSYCH: Flat affect. Results Procedures completed during hospitalization: NONE Completed studies during hospitalization: Laboratory Results WBC 8.9 th/mm3 (4.0-11.0) 06/29/18 06:32 RBC 3.66 mil/mm3 (4.00-5.30) L 06/29/18 06:32 Hgb 11.6 gm/dL (11.6-15.3) 06/29/18 06:32 Hct 33.6 % (35.0-46.0) L 06/29/18 06:32 MCV 91.7 fL (80.0-100.0) 06/29/18 06:32 MCH 31.6 pg (27.0-34.0) 06/29/18 06:32 MCHC 34.5 % (32.0-36.0) 06/29/18 06:32 RDW 14.1 % (11.6-17.2) 06/29/18 06:32 Plt Count 164 th/mm3 (150-450) 06/29/18 06:32 MPV 8.1 fL (7.0-11.0) 06/29/18 06:32 Neut % (Auto) 70.8 % (16.0-70.0) H 06/26/18 13:30 Lymph % (Auto) 17.7 % (9.0-44.0) 06/26/18 13:30 Hayes % (Auto) 8.7 % (0.0-8.0) H 06/26/18 13:30 Eos % (Auto) 1.9 % (0.0-4.0) 06/26/18 13:30 Baso % (Auto) 0.9 % (0.0-2.0) 06/26/18 13:30 Neut # (Auto) 5.6 th/mm3 (1.8-7.7) 06/26/18 13:30 Lymph # (Auto) 1.4 th/mm3 (1.0-4.8) 06/26/18 13:30 Hayes # (Auto) 0.7 th/mm3 (0.0-0.9) 06/26/18 13:30 Eos # (Auto) 0.2 th/mm3 (0.0-0.4) 06/26/18 13:30 Baso # (Auto) 0.1 th/mm3 (0.0-0.2) 06/26/18 13:30 WBC Differential . 06/26/18 13:30 Differential Comment Auto diff final 06/26/18 13:30 Sodium 142 meq/L (136-145) 06/29/18 06:32 Potassium 3.4 meq/L (3.5-5.1) L 06/29/18 06:32 Chloride 112 meq/L (98-107) H 06/29/18 06:32 Carbon Dioxide 22.9 meq/L (21.0-32.0) 06/29/18 06:32 Anion Gap 7 meq/L (5-15) 06/29/18 06:32 BUN 16 mg/dL (7-18) 06/29/18 06:32 Creatinine 1.12 mg/dL (0.50-1.00) H 06/29/18 06:32 Estimated GFR 49 mL/min (>89) L 06/29/18 06:32 Random Glucose 89 mg/dL (74-106) 06/29/18 06:32 Lactic Acid 0.6 mmol/L (0.4-2.0) 06/26/18 13:35 Calcium 8.3 mg/dL (8.5-10.1) L 06/29/18 06:32 Magnesium 1.9 mg/dL (1.5-2.5) 06/27/18 05:50 Total Bilirubin 0.8 mg/dL (0.2-1.0) 06/26/18 13:35 AST 8 U/L (15-37) L 06/26/18 13:35 ALT 10 U/L (10-53) 06/26/18 13:35 Alkaline Phosphatase 84 U/L (45-117) 06/26/18 13:35 Ammonia 13 mcmol/L (11-32) 06/26/18 13:35 Total Creatine Kinase 24 U/L (26-192) L 06/26/18 13:35 Troponin I 0.02 ng/mL (0.02-0.05) 06/26/18 13:35 Total Protein 6.9 g/dL (6.4-8.2) 06/26/18 13:35 Albumin 3.0 g/dL (3.4-5.0) L 06/26/18 13:35 Vitamin B12 Cancelled 06/26/18 13:55 TSH Cancelled 06/26/18 13:55 Urine Color Yellow (Yellw/Straw) 06/26/18 13:30 Urine Clarity Hazy (Clear) H 06/26/18 13:30 Urine pH 6.0 (5.0-8.5) 06/26/18 13:30 Ur Specific [place] 1.013 (1.002-1.035) 06/26/18 13:30 Urine Protein Negative mg/dL (Neg-Trace) 06/26/18 13:30 Urine Glucose (UA) Negative mg/dL (Negative) 06/26/18 13:30 Urine Ketones Negative mg/dL (Negative) 06/26/18 13:30 Urine Occult Blood Small (Negative) H 06/26/18 13:30 Urine Nitrate Negative (Negative) 06/26/18 13:30 Urine Bilirubin Negative (Negative) 06/26/18 13:30 Urine Urobilinogen Less than 2 mg/dL (Less than 2) 06/26/18 13:30 Ur Leukocyte Esterase Moderate (Negative) H 06/26/18 13:30 Urine RBC 2 /hpf (0-3) 06/26/18 13:30 Urine WBC 26 /hpf (0-5) H 06/26/18 13:30 Ur Squamous Epith Cells 1 /hpf (0-5) 06/26/18 13:30 Urine Bacteria Many /hpf (None) H 06/26/18 13:30 Urine Mucus Few /lpf (Occasional) H 06/26/18 13:30 Urine Yeast Few /hpf (None) H 06/26/18 13:30 Micro UA Comment Cath-culture ind 06/26/18 13:30 Ur Microscopic Review Not Reportable 06/26/18 13:30 Urine Culture Comments Cath-cult indicated 06/26/18 13:30 Impressions Chest X-Ray 06/26/18 13:19 CONCLUSION: Mildly prominent cardiac silhouette. No other acute cardiopulmonary disease identified. Head CT 06/26/18 13:19 CONCLUSION: 1. No acute intracranial findings. 2. Prominent chronic ischemic change. . Labs on day of discharge: Labs from last 24 hours 06/29/18 06/29/18 06:32 06:32 WBC 8.9 RBC 3.66 L Hgb 11.6 Hct 33.6 L MCV 91.7 MCH 31.6 MCHC 34.5 RDW 14.1 Plt Count 164 MPV 8.1 Sodium 142 Potassium 3.4 L Chloride 112 H Carbon Dioxide 22.9 Anion Gap 7 BUN 16 Creatinine 1.12 H Estimated GFR 49 L Random Glucose 89 Calcium 8.3 L Preliminary micro results at discharge 06/26/18 13:30 Aerobic Blood Culture - Preliminary Blood - Peripheral No growth in 3 days Anaerobic Blood Culture - Preliminary gram positive cocci 06/28/18 10:54 Aerobic Blood Culture - Preliminary Blood - Peripheral No growth in 1 day Anaerobic Blood Culture - Preliminary No growth in 1 day 06/26/18 13:30 Aerobic Blood Culture - Preliminary Blood - Peripheral No growth in 3 days Anaerobic Blood Culture - Preliminary No growth in 3 days - Impressions ITS Impressions Chest X-Ray 06/26/18 13:19 CONCLUSION: Mildly prominent cardiac silhouette. No other acute cardiopulmonary disease identified. Head CT 06/26/18 13:19 CONCLUSION: 1. No acute intracranial findings. 2. Prominent chronic ischemic change. . Discharge Plan - Discharge Disposition Patient Disposition: 03 Discharge to SNF - Discharge Condition Condition: Stable - Discharge Order Discharge Orders: Discharge Order (Routine); Ordered 06/29/18 Ordered By: Alfa John - Discharge Details Anticipated Discharge Date: 06/29/18 Discharge Comment: DC TO SNF WHEN BED AVAILABLE - Physicians Team Primary Care Provider: Ko Gallegos Attending Provider: Alfa John Other Providers: [facility],Agency
[2018-06-29] MEDS: amLODIPine 5 MG Tablet PO SCH (13:59)
[2018-06-29] MEDS: Ciprofloxacin 500 MG Tablet PO SCH ×2 (14:05→21:26)
[2018-06-29] MEDS: Potassium Chloride Inj 10 MEQ in Sod Chloride 0.9% Inj 1,000 ML IV.CONT SCH ×2 (19:35→21:25)
[2018-06-29] MEDS ORDERED: Ciprofloxacin 500 MG Tablet PO SCH (21:00)
[2018-06-29] MEDS: Senna/Docusate Sodium 8.6/50 MG Tablet PO SCH (21:27)
[2018-06-29] MEDS: Lisinopril 20 MG Tablet PO SCH (21:35)
[2018-06-30] MEDS ORDERED: hydrALAZINE 25 MG Tablet PO ONE (04:51)
[2018-06-30 07:43] LABS: Calcium 8.3 mg/dL (8.5-10.1); Carbon Dioxide 21.2 meq/L (21.0-32.0); Magnesium 1.9 mg/dL (1.5-2.5)
[2018-06-30] MEDS: Ciprofloxacin 500 MG Tablet PO SCH ×2 (08:02→23:11)
[2018-06-30] MEDS: Senna/Docusate Sodium 8.6/50 MG Tablet PO SCH ×2 (08:02→21:18)
[2018-06-30] MEDS: amLODIPine 5 MG Tablet PO SCH ×2 (08:02→21:18)
[2018-06-30] MEDS: Lisinopril 20 MG Tablet PO SCH ×2 (08:02→21:20)
[2018-06-30] MEDS ORDERED: amLODIPine 5 MG Tablet PO SCH (09:00)
--- NOTE | 2018-06-30 10:12 | P.PNIM ---
Subjective Interval history: 63-year-old white female being admitted for acute metabolic encephalopathy. History is limited as the patient is a poor historian. Obtained mainly from emergency room staff and . Patient was in her usual state of health until earlier this week when her says that she started being unable to ambulate with him despite her cane. Says that she now does not want to ambulate at all. Reportedly has a decreased appetite. Emergency room staff, she smelled of urine. Normally at baseline says she walks with him with a cane but has not done so for the past week. He denies headaches expressing any pain such as chest pain. Patient herself denies having any dysuria. says the patient has not had a major stroke 8 years ago. They are from [place] and they plan to go back there where they have more support with 2 of their grown children. Family history is unable to be obtained as the patient herself is an unreliable historian due to her chronic mental impairment. tells me that the patient used to be on medications for chronic medical conditions but says she was discontinued off of those in [place]. Emergency department patient was found to be hypertensive with a systolic greater than 220. Hypokalemic at 2.9. CT head was negative. Chest x-ray was straight and enlarged cardiac silhouette. They gave labetalol with improvement in her blood pressure which rebounded high again when I saw her with a diastolic around 115. 9-15 Discussed with the patient's at bedside. She remains very weak. Not eating much. reports at baseline she does not talk much. Patient answers simple yes or no questions. She has no complaints. 9-16 No acute issues overnight. Still not eating much. Blood pressure uncontrolled. 9-17 BLOOD PRESSURE NOT AT GOAL DW RN AND PT TODAY WILL NEED MORE MEDICATIONS [facility] RN AND PT AND CM AND FAMILY ADD NORVASC 5MG PO DAILY ADD PRN CATAPRES -18 NEEDS 3 MIDNIGHTS FOR SNF HAS HAD 1 SO FAR AM LABS BLOOD PRESSURE STILL NOT AT GOAL WILL INCREASE NORVASC TO 5MG PO BID HYDRALAZINE 50MG PO TID DW RN AND PT AND CM AND WILL NEED SNF CASE DISCUSSED WITH UTILIZATION REVIEW HEPLOCK IV CONTINUE PT AND OT Physical Exam Vital signs: Vital Signs 06/29/18 12:00 06/29/18 18:00 06/29/18 20:00 Temperature 98.2 F 97.7 F 98.1 F Pulse Rate 59 L 58 L 61 Respiratory Rate 17 18 14 Blood Pressure 174/81 H 189/88 H 164/95 H Pulse Oximetry 98 95 97 06/30/18 00:00 06/30/18 00:19 06/30/18 01:41 Temperature 98.2 F Pulse Rate 62 64 61 Respiratory Rate 18 Blood Pressure 214/89 H 193/88 H 201/82 H Pulse Oximetry 96 06/30/18 04:08 06/30/18 06:18 06/30/18 07:00 Temperature 98.5 F Pulse Rate 63 59 L Respiratory Rate 19 12 Blood Pressure 204/91 H 180/79 H Pulse Oximetry 06/30/18 08:00 Temperature 98.5 F Pulse Rate 56 L Respiratory Rate 20 Blood Pressure 183/82 H Pulse Oximetry 96 Intake & Output 06/29/18 06/30/18 06/30/18 18:59 06:59 18:59 Intake Total 1105 / 1105 Balance 1105 / 1105 Weight 72.8 kg Intake: IV 1105 / 1105 KCl Inj 10 MEQ In NS Inj 1,000 1005 / 1005 ML @ 42 mls/hr IV.CONT .[id number] [facility] Rx#:[id number] Rocephin Inj 1,000 MG In NS Inj 100 / 100 100 ML @ 200 mls/hr IV.SIG Q24H [facility] Rx#:[id number] Other: # Voids 3 Date of Last Bowel Movement 06/28/18 Narrative: GENERAL: Patient appears much older than stated age. CARDIOVASCULAR: Normal rate and regular rhythm without murmurs, gallops, or rubs. S1, S2 NO S3 OR S4 RESPIRATORY: Good respiratory efforts. Breath sounds equal and clear to auscultation bilaterally. GASTROINTESTINAL: Abdomen soft, non-tender, non-distended. Normal active bowel sounds OBESE MUSCULOSKELETAL: Extremities without cyanosis, or edema. NEURO: Alert & Oriented to self. Profound generalized weakness PSYCH: Flat affect. Results - Labs CBC & Chem 7: 06/30/18 09:55 06/30/18 09:55 Laboratory Results - last 24 hr 06/30/18 06:41 Sodium 144 Potassium 4.0 Chloride 112 H Carbon Dioxide 21.2 Anion Gap 11 BUN 14 Creatinine 1.14 H Estimated GFR 48 L Random Glucose 94 Calcium 8.3 L Magnesium 1.9 Microbiology 06/26/18 13:30 Blood - Peripheral Aerobic Blood Culture - Preliminary No growth in 3 days 06/26/18 13:30 Blood - Peripheral Anaerobic Blood Culture - Preliminary gram positive cocci 06/28/18 10:54 Blood - Peripheral Aerobic Blood Culture - Preliminary No growth in 1 day 06/28/18 10:54 Blood - Peripheral Anaerobic Blood Culture - Preliminary No growth in 1 day 06/26/18 13:30 Blood - Peripheral Aerobic Blood Culture - Preliminary No growth in 3 days 06/26/18 13:30 Blood - Peripheral Anaerobic Blood Culture - Preliminary No growth in 3 days - Procedures NONE Assessment and Plan - Assessment (1) Acute UTI Code(s): N39.0 - Urinary tract infection, site not specified Status: Acute (2) Altered mental status Code(s): R41.82 - Altered mental status, unspecified Status: Acute (3) Hypertensive urgency Code(s): I16.0 - Hypertensive urgency Status: Chronic (4) Hypokalemia Code(s): E87.6 - Hypokalemia Status: Chronic - Plan 63-year-old white female admitted for acute metabolic encephalopathy Encephalopathy Generalized weakness Multifactorial with acute metabolic and hypertensive elements involved superimposed upon chronic impairment from the patient's prior strokes.. -f/u UC, continue Rocephin for now -VS -PT/ST/OT eval UNCONTROLLED HYPERTENSION CONTINUE ON NORVASC 5MG PO BID --INCREASED CONTINUE ON HYDRALAZINE 50MG PO TID INCREASED CONTINUE ON COREG 3.125MG PO BID-CANNOT INCREASE DUE TO HEART RATE LISINOPRIL 20MG PO BID CATAPRES PRN HYPERLIPIDEMIA CONTINUE LIPITOR Gram-negative UTI: KLEBSIELLA PNEUMONIAE - SWITCH TO CIPRO - SWITCH TO CIPRO AT DC Follow cultures. hypokalemia Possible acute kidney injury Unknown baseline, creatinine 1.39, gentle IV hydration,. -Replace K. Follow-up BMP in a.m. Coronary artery disease/hypertension Started on low-dose baby aspirin, and low-dose Coreg as well as nighttime Lipitor -Blood pressure uncontrolled. Increase lisinopril to 20 mg twice daily. Continue Coreg. - 2D echocardiogram unremarkable. History of strokes Chronic cognitive impairment. At baseline the patient does not interact much. reports she has been declining lately. 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 - Physical therapy/OT following GI prophylaxis: PPI. Stool softener PRN constipation. DVT PPx: Lovenox WILL NEED SNF NEEDS 3 MIDNIGHTS HAS HAD 1 CAN DC TO SNF ON 07-02 Code Status: FULL CODE Discussed Condition With: RN AND PT AND CM Discharge Planning: DC TO SNF ONCE MEETS 3MIDNIGHT REQUIREMENTS
[2018-06-30 10:32] LABS: Alanine Aminotransferase 10 U/L (10-53); Albumin 2.6 g/dL (3.4-5.0); Anion Gap 9 meq/L (5-15); Aspartate Aminotransferase 11 U/L (15-37); Baso # (Auto) 0.1 th/mm3 (0.0-0.2); Baso % (Auto) 0.9 % (0.0-2.0); Blood Urea Nitrogen 14 mg/dL (7-18); Calcium 8.1 mg/dL (8.5-10.1); Carbon Dioxide 21.4 meq/L (21.0-32.0); Chloride 112 meq/L (98-107); Eos # (Auto) 0.2 th/mm3 (0.0-0.4); Eos % (Auto) 2.1 % (0.0-4.0); Glomerular Filtration Rate 52 mL/min (>89); Glucose,Random 86 mg/dL (74-106); Hematocrit 34.7 % (35.0-46.0); Hemoglobin 11.7 gm/dL (11.6-15.3); Lymph # (Auto) 1.2 th/mm3 (1.0-4.8); Lymph % (Auto) 14.7 % (9.0-44.0); Magnesium 1.6 mg/dL (1.5-2.5); Mean Corpuscular HGB Conc 33.8 % (32.0-36.0); Mean Corpuscular Hemoglobin 31.5 pg (27.0-34.0); Mean Corpuscular Volume 93.2 fL (80.0-100.0); Mean Platelet Volume 8.1 fL (7.0-11.0); Mono # (Auto) 0.7 th/mm3 (0.0-0.9); Mono % (Auto) 8.2 % (0.0-8.0); Neut % (Auto) 74.1 % (16.0-70.0); Platelet Count 170 th/mm3 (150-450); Potassium 3.8 meq/L (3.5-5.1); Red Blood Count 3.73 mil/mm3 (4.00-5.30); Sodium 142 meq/L (136-145); White Blood Count 8.1 th/mm3 (4.0-11.0)
[2018-06-30 10:34] LABS: Phosphorus 3.1 mg/dL (2.5-4.9)
[2018-06-30 10:35] LABS: Alkaline Phosphatase 86 U/L (45-117); Total Protein 6.5 g/dL (6.4-8.2)
--- NOTE | 2018-06-30 10:49 | P.CODE44 ---
Code 44 - No Change in Status - Code 44 - No Change in Status Statement: A clinical review of the case has been conducted by a member of the Utilization Review Committee. The findings indicate the patient meets criteria for inpatient status. I reviewed the chart Patient has history of hypertension, CVA, and coronary artery disease and has uncontrolled blood pressure. Clinical team concerned about blood pressure. Medical team has been adjusting and adding different medications to lower her blood pressure while she is being treated for the UTI. The information and decision has been discussed with the attending physician Alfa John DO ( by the patient case manager) and physician advisor Hakeem Hackett MD.
[2018-06-30] MEDS: hydrALAZINE 50 MG Tablet PO SCH ×2 (12:06→17:06)
--- NOTE | 2018-06-30 15:30 | CT ---
EXAM DATE: 06/30/2018 3:05 PM EDT AGE/SEX: 63 years / Female INDICATIONS: Altered mental status CLINICAL DATA: This is the patient's initial encounter. Patient reports that signs and symptoms have been present for 1 day and indicates a pain score of 0/10. MEDICAL/SURGICAL HISTORY: Cardiovascular disease. Cerebrovascular disease. None. RADIATION DOSE: 50.34 CTDI (mGy) COMPARISON: [facility] [place], CT HEAD W/O CONTRAST, 06/26/2018. . TECHNIQUE: CT of the head without contrast. Using automated exposure control and adjustment of the mA and/or kV according to patient size, radiation dose was kept as low as reasonably achievable to ob tain optimal diagnostic quality images. DICOM format image data is available electronically for revi ew and comparison. FINDINGS: Cerebrum: The patient again has diffuse atrophy present. There are areas of low signal throughout th e deep white matter tracts bilaterally. There are least 2 left-sided lacunar infarcts extending into the basal ganglia. There is enlargement of the left ventricular system. No evidence of acute hemorrha ge or edema. Posterior Fossa: The cerebellum and brainstem are intact. The 4th ventricle is midline. The cerebe llopontine angle is unremarkable. Extracranial: The visualized portion of the orbits is intact. Skull: The calvaria is intact. No evidence of skull fracture. CONCLUSION: 1. Marked atrophy and old left-sided lacunar infarcts. No acute hemorrhage or edema seen . Electronically signed by: Harry Manzanares MD 06/30/2018 3:28 PM EDT
[2018-06-30] MEDS: niCARdipine Inj 25 MG in Sodium Chlor 0.9% Inj 240 ML IV.CONT PRN ×2 (18:21→23:11)
[2018-07-01 04:00] LABS: Baso # (Auto) 0.1 th/mm3 (0.0-0.2); Baso % (Auto) 0.5 % (0.0-2.0); Eos # (Auto) 0.1 th/mm3 (0.0-0.4); Eos % (Auto) 0.4 % (0.0-4.0); Hemoglobin 12.6 gm/dL (11.6-15.3); Lymph % (Auto) 7.1 % (9.0-44.0); Mean Corpuscular HGB Conc 34.1 % (32.0-36.0); Mean Corpuscular Hemoglobin 31.1 pg (27.0-34.0); Mean Corpuscular Volume 91.3 fL (80.0-100.0); Mean Platelet Volume 7.9 fL (7.0-11.0); Mono # (Auto) 0.7 th/mm3 (0.0-0.9); Mono % (Auto) 4.8 % (0.0-8.0); Neut # (Auto) 12.3 th/mm3 (1.8-7.7); Neut % (Auto) 87.2 % (16.0-70.0); Platelet Count 202 th/mm3 (150-450); Red Blood Count 4.05 mil/mm3 (4.00-5.30); White Blood Count 14.1 th/mm3 (4.0-11.0)
[2018-07-01 04:32] LABS: Albumin 2.8 g/dL (3.4-5.0); Anion Gap 12 meq/L (5-15); Aspartate Aminotransferase 10 U/L (15-37); Blood Urea Nitrogen 16 mg/dL (7-18); Calcium 8.5 mg/dL (8.5-10.1); Carbon Dioxide 21.1 meq/L (21.0-32.0); Chloride 108 meq/L (98-107); Glomerular Filtration Rate 54 mL/min (>89); Glucose,Random 101 mg/dL (74-106); Magnesium 1.5 mg/dL (1.5-2.5); Potassium 3.6 meq/L (3.5-5.1); Sodium 141 meq/L (136-145)
[2018-07-01 04:33] LABS: Alanine Aminotransferase 12 U/L (10-53); Phosphorus 3.1 mg/dL (2.5-4.9)
[2018-07-01 04:35] LABS: Alkaline Phosphatase 95 U/L (45-117); Total Protein 6.9 g/dL (6.4-8.2)
[2018-07-01] MEDS: amLODIPine 5 MG Tablet PO SCH ×2 (09:59→20:49)
[2018-07-01] MEDS: Lisinopril 20 MG Tablet PO SCH ×2 (09:59→20:49)
[2018-07-01] MEDS: Senna/Docusate Sodium 8.6/50 MG Tablet PO SCH ×2 (09:59→20:50)
[2018-07-01] MEDS: hydrALAZINE 50 MG Tablet PO SCH ×3 (09:59→17:15)
[2018-07-01] MEDS: niCARdipine Inj 25 MG in Sodium Chlor 0.9% Inj 240 ML IV.CONT PRN (11:00)
[2018-07-01] MEDS ORDERED: Magnesium Sulfate Inj 4 GM in Dextrose 5% in Water Inj 100 ML IV.SIG ONE ×2 (11:00)
[2018-07-01] MEDS: Ciprofloxacin 500 MG Tablet PO SCH ×2 (13:05→20:49)
--- NOTE | 2018-07-01 18:22 | P.PNIM ---
Subjective Interval history: 63-year-old white female being admitted for acute metabolic encephalopathy. History is limited as the patient is a poor historian. Obtained mainly from emergency room staff and . Patient was in her usual state of health until earlier this week when her says that she started being unable to ambulate with him despite her cane. Says that she now does not want to ambulate at all. Reportedly has a decreased appetite. Emergency room staff, she smelled of urine. Normally at baseline says she walks with him with a cane but has not done so for the past week. He denies headaches expressing any pain such as chest pain. Patient herself denies having any dysuria. says the patient has not had a major stroke 8 years ago. They are from [place] and they plan to go back there where they have more support with 2 of their grown children. Family history is unable to be obtained as the patient herself is an unreliable historian due to her chronic mental impairment. tells me that the patient used to be on medications for chronic medical conditions but says she was discontinued off of those in [place]. Emergency department patient was found to be hypertensive with a systolic greater than 220. Hypokalemic at 2.9. CT head was negative. Chest x-ray was straight and enlarged cardiac silhouette. They gave labetalol with improvement in her blood pressure which rebounded high again when I saw her with a diastolic around 115. 9-15 Discussed with the patient's at bedside. She remains very weak. Not eating much. reports at baseline she does not talk much. Patient answers simple yes or no questions. She has no complaints. 9-16 No acute issues overnight. Still not eating much. Blood pressure uncontrolled. 9-17 BLOOD PRESSURE NOT AT GOAL DW RN AND PT TODAY WILL NEED MORE MEDICATIONS WILL NEED SNF [place] [facility] RN AND PT AND CM AND FAMILY ADD NORVASC 5MG PO DAILY ADD PRN CATAPRES 9-18 NEEDS 3 MIDNIGHTS FOR SNF HAS HAD 1 SO FAR AM LABS BLOOD PRESSURE STILL NOT AT GOAL WILL INCREASE NORVASC TO 5MG PO BID HYDRALAZINE 50MG PO TID DW RN AND PT AND CM AND WILL NEED SNF CASE DISCUSSED WITH UTILIZATION REVIEW HEPLOCK IV CONTINUE PT AND OT PATIENT'S BLOOD PRESSURE STILL NOT AT GOAL WILL ADJUST MEDICATIONS HAVE OCTAVIO GOSS AND UTILIZATION REVIEW PATIENT REMAINS ALTERED WILL GET A CAT SCAN OF HER HEAD CONTINUE TO ADJUST BLOOD PRESSURE MEDS AND MONITOR FOR SIGNS OF IMPROVEMENT WILL NEED SNF AT DC NOT A SAFE DC FOR HOME PATIENT'S BLOOD PRESSURE STILL NOT CONTROLLED WILL TRANSFER AND START CARDENE DRIP IN MY PERSONAL OPINION PATIENT MEETS FULL INPATIENT CRITERIA FOR ADMISSION 07-01 MOVED TO ICU FOR CARDENE DRIP ONCE TAKEN OFF WENT BACK UP TO THE 170S TODAY WILL RESTART AT 2.5MG AND MONITOR WILL INCREASE HYDRALAZINE TO 75MG PO TID DW RN AND PT PT REMAINS CONFUSED Physical Exam Vital signs: Vital Signs 06/30/18 18:24 06/30/18 19:00 06/30/18 20:00 Temperature 98.4 F 98.3 F Pulse Rate 55 L 55 L 60 Respiratory Rate 22 18 Blood Pressure 184/77 H 134/65 137/65 Pulse Oximetry 100 100 07/01/18 00:00 07/01/18 04:00 07/01/18 07:00 Temperature 98 F 98 F Pulse Rate 68 75 78 Respiratory Rate 20 19 Blood Pressure 142/59 H 131/60 146/63 H Pulse Oximetry 100 100 94 L 07/01/18 07:15 07/01/18 07:30 07/01/18 07:45 Temperature 98.6 F Pulse Rate 70 69 72 Respiratory Rate 20 19 Blood Pressure 143/63 H 144/65 H 145/65 H Pulse Oximetry 97 99 07/01/18 08:00 07/01/18 08:15 07/01/18 08:30 Temperature Pulse Rate 69 67 67 Respiratory Rate 21 23 Blood Pressure 157/67 H 154/65 H 155/67 H Pulse Oximetry 99 100 100 07/01/18 08:45 07/01/18 09:00 07/01/18 09:15 Temperature Pulse Rate 66 67 66 Respiratory Rate 25 H 17 17 Blood Pressure 149/67 H 145/64 H 148/63 H Pulse Oximetry 100 99 100 07/01/18 09:30 07/01/18 09:45 07/01/18 10:00 Temperature Pulse Rate 67 67 66 Respiratory Rate 17 23 Blood Pressure 151/67 H 137/64 149/63 H Pulse Oximetry 100 100 07/01/18 10:15 07/01/18 10:30 07/01/18 10:45 Temperature Pulse Rate 67 65 66 Respiratory Rate 17 20 Blood Pressure 143/64 H 142/65 H 144/63 H Pulse Oximetry 07/01/18 11:00 07/01/18 11:15 07/01/18 11:30 Temperature Pulse Rate 68 69 70 Respiratory Rate 23 23 24 Blood Pressure 156/67 H 154/70 H 148/68 H Pulse Oximetry 07/01/18 11:45 07/01/18 12:00 07/01/18 12:15 Temperature Pulse Rate 71 65 71 Respiratory Rate 18 Blood Pressure 155/72 H 143/64 H 132/72 Pulse Oximetry 07/01/18 12:30 07/01/18 12:46 07/01/18 13:00 Temperature Pulse Rate 66 73 67 Respiratory Rate 17 24 19 Blood Pressure 138/66 159/69 H 154/67 H Pulse Oximetry 100 100 07/01/18 13:15 07/01/18 13:30 07/01/18 13:45 Temperature Pulse Rate 71 72 68 Respiratory Rate 23 19 17 Blood Pressure 165/70 H 154/67 H 153/66 H Pulse Oximetry 99 98 100 07/01/18 14:00 07/01/18 14:15 07/01/18 14:30 Temperature Pulse Rate 65 63 63 Respiratory Rate 19 16 16 Blood Pressure 133/62 149/65 H 159/69 H Pulse Oximetry 100 95 96 07/01/18 14:45 07/01/18 15:00 07/01/18 15:15 Temperature Pulse Rate 65 63 64 Respiratory Rate 17 16 16 Blood Pressure 158/70 H 153/67 H 152/66 H Pulse Oximetry 95 100 99 07/01/18 15:30 07/01/18 15:45 07/01/18 16:00 Temperature 98.6 F Pulse Rate 63 66 65 Respiratory Rate 17 20 19 Blood Pressure 155/70 H 158/68 H 164/72 H Pulse Oximetry 100 94 L 97 07/01/18 16:15 07/01/18 16:30 Temperature Pulse Rate 64 64 Respiratory Rate 19 18 Blood Pressure 162/67 H 161/69 H Pulse Oximetry 99 100 Intake & Output 06/30/18 07/01/18 07/01/18 18:59 06:59 18:59 Intake Total 460 / 460 310 / 310 350 / 350 Output Total 3 / 3 600 / 600 Balance 457 / 457 310 / 310 -250 / -250 Weight 72.3 kg Intake: IV 100 / 100 250 / 250 350 / 350 KCl Inj 10 MEQ In NS Inj 1,000 0 / 0 ML @ 42 mls/hr IV.CONT .[id number] [facility] Rx#:[id number] Cardene Inj 25 MG In NS Inj 240 250 / 250 250 / 250 ML @ 5 MG/HR 50 mls/hr IV.CONT TITRATE PRN Rx#:[id number] Rocephin Inj 1,000 MG In NS Inj 100 / 100 100 / 100 100 ML @ 200 mls/hr IV.SIG Q24H [facility] Rx#:[id number] Oral 360 / 360 60 / 60 Output: Urine 3 / 3 600 / 600 Other: # Voids 3 Date of Last Bowel Movement 06/29/18 06/29/18 07/01/18 # Bowel Movements 2 1 Narrative: GENERAL: Patient appears much older than stated age. CARDIOVASCULAR: Normal rate and regular rhythm without murmurs, gallops, or rubs. S1, S2 NO S3 OR S4 RESPIRATORY: Good respiratory efforts. Breath sounds equal and clear to auscultation bilaterally. GASTROINTESTINAL: Abdomen soft, non-tender, non-distended. Normal active bowel sounds OBESE MUSCULOSKELETAL: Extremities without cyanosis, or edema. NEURO: Alert & Oriented to self. Profound generalized weakness PSYCH: Flat affect. Results - Labs CBC & Chem 7: 07/01/18 03:26 07/01/18 03:26 Laboratory Results - last 24 hr 07/01/18 07/01/18 03:26 03:26 WBC 14.1 H D RBC 4.05 Hgb 12.6 Hct 37.0 MCV 91.3 MCH 31.1 MCHC 34.1 RDW 14.0 Plt Count 202 MPV 7.9 Neut % (Auto) 87.2 H Lymph % (Auto) 7.1 L [place] % (Auto) 4.8 Eos % (Auto) 0.4 Baso % (Auto) 0.5 Neut # (Auto) 12.3 H Lymph # (Auto) 1.0 [place] # (Auto) 0.7 Eos # (Auto) 0.1 Baso # (Auto) 0.1 WBC Differential . Differential Comment Auto diff final Sodium 141 Potassium 3.6 Chloride 108 H Carbon Dioxide 21.1 Anion Gap 12 BUN 16 Creatinine 1.03 H Estimated GFR 54 L Random Glucose 101 Calcium 8.5 Phosphorus 3.1 Magnesium 1.5 Total Bilirubin 0.6 AST 10 L ALT 12 Alkaline Phosphatase 95 Total Protein 6.9 Albumin 2.8 L Microbiology 06/28/18 10:54 Blood - Peripheral Aerobic Blood Culture - Preliminary No growth in 3 days 06/28/18 10:54 Blood - Peripheral Anaerobic Blood Culture - Preliminary No growth in 3 days 06/26/18 13:30 Blood - Peripheral Aerobic Blood Culture - Final No growth in 5 days 06/26/18 13:30 Blood - Peripheral Anaerobic Blood Culture - Final anaerobic gram pos cocci 06/26/18 13:30 Blood - Peripheral Aerobic Blood Culture - Final No growth in 5 days 06/26/18 13:30 Blood - Peripheral Anaerobic Blood Culture - Final No growth in 5 days - Imaging Chest X-Ray 06/26/18 13:19 CONCLUSION: Mildly prominent cardiac silhouette. No other acute cardiopulmonary disease identified. Head CT 06/26/18 13:19 CONCLUSION: 1. No acute intracranial findings. 2. Prominent chronic ischemic change. . Head CT 06/30/18 00:00 CONCLUSION: 1. Marked atrophy and old left-sided lacunar infarcts. No acute hemorrhage or edema seen . - Procedures NONE Assessment and Plan - Assessment (1) Acute UTI Code(s): N39.0 - Urinary tract infection, site not specified Status: Acute (2) Altered mental status Code(s): R41.82 - Altered mental status, unspecified Status: Acute (3) Hypertensive urgency Code(s): I16.0 - Hypertensive urgency Status: Chronic (4) Hypokalemia Code(s): E87.6 - Hypokalemia Status: Chronic - Plan 63-year-old white female admitted for acute metabolic encephalopathy Encephalopathy Generalized weakness Multifactorial with acute metabolic and hypertensive elements involved superimposed upon chronic impairment from the patient's prior strokes.. -f/u UC, continue Rocephin for now -VS -PT/ST/OT eval UNCONTROLLED HYPERTENSION CONTINUE ON NORVASC 5MG PO BID --INCREASED CONTINUE ON HYDRALAZINE 50MG PO TID INCREASED CONTINUE ON COREG 3.125MG PO BID-CANNOT INCREASE DUE TO HEART RATE LISINOPRIL 20MG PO BID CATAPRES PRN HAD TO BE MOVED TO ICU FOR CARDENE DRIP ON 06-30 REMAINS IN ICU 07-01 WILL RESTART CARDENE DRIP AND INCREASE HYDRALAZINE DW RN AND PT HYPERLIPIDEMIA CONTINUE LIPITOR Gram-negative UTI: KLEBSIELLA PNEUMONIAE - SWITCH TO CIPRO - SWITCH TO CIPRO AT DC Follow cultures. hypokalemia Possible acute kidney injury Unknown baseline, creatinine 1.39, gentle IV hydration,. -Replace K. Follow-up BMP in a.m. Coronary artery disease/hypertension Started on low-dose baby aspirin, and low-dose Coreg as well as nighttime Lipitor -Blood pressure uncontrolled. Increase lisinopril to 20 mg twice daily. Continue Coreg. - 2D echocardiogram unremarkable. History of strokes Chronic cognitive impairment. At baseline the patient does not interact much. reports she has been declining lately. 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 - Physical therapy/OT following GI prophylaxis: PPI. Stool softener PRN constipation. DVT PPx: Lovenox WILL NEED SNF NEEDS 3 MIDNIGHTS HAS HAD 1 CAN DC TO SNF ON 07-02 Code Status: FULL CODE Discussed Condition With: RN AND PT Discharge Planning: DC TO SNF ONCE MEETS 3MIDNIGHT REQUIREMENTS AND BLOOD PRESSURE IS UNDER CONTROL
[2018-07-01] MEDS: hydrALAZINE 25 MG Tablet PO SCH (21:00)
[2018-07-02 04:59] LABS: Baso # (Auto) 0.1 th/mm3 (0.0-0.2); Baso % (Auto) 0.7 % (0.0-2.0); Eos # (Auto) 0.1 th/mm3 (0.0-0.4); Hematocrit 38.6 % (35.0-46.0); Hemoglobin 12.8 gm/dL (11.6-15.3); Lymph % (Auto) 8.1 % (9.0-44.0); Mean Corpuscular HGB Conc 33.1 % (32.0-36.0); Mean Corpuscular Hemoglobin 30.7 pg (27.0-34.0); Mean Corpuscular Volume 92.6 fL (80.0-100.0); Mean Platelet Volume 7.8 fL (7.0-11.0); Mono # (Auto) 0.6 th/mm3 (0.0-0.9); Mono % (Auto) 4.8 % (0.0-8.0); Neut # (Auto) 10.9 th/mm3 (1.8-7.7); Neut % (Auto) 85.4 % (16.0-70.0); Platelet Count 217 th/mm3 (150-450); Red Blood Count 4.17 mil/mm3 (4.00-5.30); Red Cell Distribution Width 14.1 % (11.6-17.2); White Blood Count 12.7 th/mm3 (4.0-11.0)
[2018-07-02 06:02] LABS: Alanine Aminotransferase 10 U/L (10-53); Albumin 2.8 g/dL (3.4-5.0); Alkaline Phosphatase 94 U/L (45-117); Anion Gap 11 meq/L (5-15); Aspartate Aminotransferase 12 U/L (15-37); Blood Urea Nitrogen 17 mg/dL (7-18); Calcium 8.4 mg/dL (8.5-10.1); Carbon Dioxide 20.1 meq/L (21.0-32.0); Chloride 109 meq/L (98-107); Glomerular Filtration Rate 52 mL/min (>89); Glucose,Random 96 mg/dL (74-106); Magnesium 2.5 mg/dL (1.5-2.5); Phosphorus 2.8 mg/dL (2.5-4.9); Potassium 3.2 meq/L (3.5-5.1); Sodium 140 meq/L (136-145); Total Protein 6.9 g/dL (6.4-8.2)
--- NOTE | 2018-07-02 07:38 | P.PNIM ---
Subjective Interval history: Mrs. López was afebrile with stable VS overnight (SBP 159-169 overnight). Per nursing staff, patient did not require Cardene drip since ~midnight. Patient states that she is doing ok at this time; she does not report chest pain , shortness of breath, or pain. Patient requests to get up to use the bathroom today. Physical Exam Vital signs: Vital Signs 07/01/18 07:30 07/01/18 07:45 07/01/18 08:00 Temperature 98.6 F Pulse Rate 69 72 69 Respiratory Rate 19 21 Blood Pressure 144/65 H 145/65 H 157/67 H Pulse Oximetry 99 99 07/01/18 08:15 07/01/18 08:30 07/01/18 08:45 Temperature Pulse Rate 67 67 66 Respiratory Rate 23 25 H Blood Pressure 154/65 H 155/67 H 149/67 H Pulse Oximetry 100 100 100 07/01/18 09:00 07/01/18 09:15 07/01/18 09:30 Temperature Pulse Rate 67 66 67 Respiratory Rate 17 17 17 Blood Pressure 145/64 H 148/63 H 151/67 H Pulse Oximetry 99 100 100 07/01/18 09:45 07/01/18 10:00 07/01/18 10:15 Temperature Pulse Rate 67 66 67 Respiratory Rate 23 Blood Pressure 137/64 149/63 H 143/64 H Pulse Oximetry 100 07/01/18 10:30 07/01/18 10:45 07/01/18 11:00 Temperature Pulse Rate 65 66 68 Respiratory Rate 17 20 23 Blood Pressure 142/65 H 144/63 H 156/67 H Pulse Oximetry 07/01/18 11:15 07/01/18 11:30 07/01/18 11:45 Temperature Pulse Rate 69 70 71 Respiratory Rate 23 24 Blood Pressure 154/70 H 148/68 H 155/72 H Pulse Oximetry 07/01/18 12:00 07/01/18 12:15 07/01/18 12:30 Temperature Pulse Rate 65 71 66 Respiratory Rate 18 17 Blood Pressure 143/64 H 132/72 138/66 Pulse Oximetry 07/01/18 12:46 07/01/18 13:00 07/01/18 13:15 Temperature Pulse Rate 73 67 71 Respiratory Rate 24 19 23 Blood Pressure 159/69 H 154/67 H 165/70 H Pulse Oximetry 100 100 99 07/01/18 13:30 07/01/18 13:45 07/01/18 14:00 Temperature Pulse Rate 72 68 65 Respiratory Rate 19 17 19 Blood Pressure 154/67 H 153/66 H 133/62 Pulse Oximetry 98 100 100 07/01/18 14:15 07/01/18 14:30 07/01/18 14:45 Temperature Pulse Rate 63 63 65 Respiratory Rate 16 16 17 Blood Pressure 149/65 H 159/69 H 158/70 H Pulse Oximetry 95 96 95 07/01/18 15:00 07/01/18 15:15 07/01/18 15:30 Temperature Pulse Rate 63 64 63 Respiratory Rate 16 16 17 Blood Pressure 153/67 H 152/66 H 155/70 H Pulse Oximetry 100 99 100 07/01/18 15:45 07/01/18 16:00 07/01/18 16:15 Temperature 98.6 F Pulse Rate 66 65 64 Respiratory Rate 20 19 19 Blood Pressure 158/68 H 164/72 H 162/67 H Pulse Oximetry 94 L 97 99 07/01/18 16:30 07/01/18 20:00 07/02/18 00:00 Temperature 98.6 F 98.8 F Pulse Rate 64 75 73 Respiratory Rate 18 22 22 Blood Pressure 161/69 H 170/75 H 169/70 H Pulse Oximetry 100 97 100 07/02/18 04:00 Temperature 98.2 F Pulse Rate 79 Respiratory Rate 21 Blood Pressure 159/79 H Pulse Oximetry 99 Intake & Output 07/01/18 07/02/18 07/02/18 18:59 06:59 18:59 Intake Total 458 / 458 350 / 350 Output Total 600 / 600 800 / 800 Balance -142 / -142 -450 / -450 Weight 70.2 kg Intake: IV 458 / 458 250 / 250 Cardene Inj 25 MG In NS Inj 240 250 / 250 250 / 250 ML @ 5 MG/HR 50 mls/hr IV.CONT TITRATE PRN Rx#:[id number] Magnesium Sulfate Inj 4 GM In 108 / 108 D5W Inj 100 ML @ 25 mls/hr IV. SIG ONCE ONE Rx#:[id number] Rocephin Inj 1,000 MG In NS Inj 100 / 100 100 ML @ 200 mls/hr IV.SIG Q24H [facility] Rx#:[id number] Oral 100 / 100 Output: Urine 600 / 600 800 / 800 Stool 0 / 0 Urine/Stool Mix 0 / 0 Other: Date of Last Bowel Movement 07/01/18 07/01/18 # Bowel Movements 1 0 # Incontinent Bowel Movements 0 Narrative: GENERAL: no acute distress CARDIOVASCULAR: Regular rate and rhythm without murmurs. No LE edema. Grossly normal perfusion. RESPIRATORY: CTAB; normal rate GASTROINTESTINAL: Abdomen soft, non-tender, non-distended. Bowel sounds normal MUSCULOSKELETAL: appears weak. No appreciated calf asymmetry NEURO: Alert & Oriented to self. Grossly normal CN. Normal peripheral sensory function; no focal motor deficits but weak PSYCH: Flat affect. Results - Labs CBC & Chem 7: 07/02/18 03:57 07/02/18 03:57 Laboratory Results - last 24 hr 07/02/18 07/02/18 03:57 03:57 WBC 12.7 H RBC 4.17 Hgb 12.8 Hct 38.6 MCV 92.6 MCH 30.7 MCHC 33.1 RDW 14.1 Plt Count 217 MPV 7.8 Neut % (Auto) 85.4 H Lymph % (Auto) 8.1 L [place] % (Auto) 4.8 Eos % (Auto) 1.0 Baso % (Auto) 0.7 Neut # (Auto) 10.9 H Lymph # (Auto) 1.0 [place] # (Auto) 0.6 Eos # (Auto) 0.1 Baso # (Auto) 0.1 WBC Differential . Differential Comment Auto diff final Sodium 140 Potassium 3.2 L Chloride 109 H Carbon Dioxide 20.1 L Anion Gap 11 BUN 17 Creatinine 1.06 H Estimated GFR 52 L Random Glucose 96 Calcium 8.4 L Phosphorus 2.8 Magnesium 2.5 D Total Bilirubin 0.5 AST 12 L ALT 10 Alkaline Phosphatase 94 Total Protein 6.9 Albumin 2.8 L Microbiology 06/28/18 10:54 Blood - Peripheral Aerobic Blood Culture - Preliminary No growth in 3 days 06/28/18 10:54 Blood - Peripheral Anaerobic Blood Culture - Preliminary No growth in 3 days 06/26/18 13:30 Blood - Peripheral Aerobic Blood Culture - Final No growth in 5 days 06/26/18 13:30 Blood - Peripheral Anaerobic Blood Culture - Final anaerobic gram pos cocci 06/26/18 13:30 Blood - Peripheral Aerobic Blood Culture - Final No growth in 5 days 06/26/18 13:30 Blood - Peripheral Anaerobic Blood Culture - Final No growth in 5 days - Procedures NONE Assessment and Plan - Assessment (1) Acute UTI Code(s): N39.0 - Urinary tract infection, site not specified Status: Acute (2) Altered mental status Code(s): R41.82 - Altered mental status, unspecified Status: Acute (3) Hypertensive urgency Code(s): I16.0 - Hypertensive urgency Status: Chronic (4) Hypokalemia Code(s): E87.6 - Hypokalemia Status: Chronic - Plan 63-year-old white female admitted for acute metabolic encephalopathy Encephalopathy Generalized weakness Impression: Multifactorial with acute metabolic and hypertensive elements involved superimposed upon chronic impairment from the patient's prior strokes. CT head 06/30 with atrophy and lacunar infarcts. Current treatment for UTI -Continue Ciprofloxacin for treatment of UTI -PT/ST/OT eval HTN Impression: Uncontrolled during hospitalization; requiring Cardene drip for control 07/02-Cardene drip stopped overnight -Continue Amlodipine 5mg BID -Continue Carvedilol 3.125mg BID -Continue Hydralazine 75mg TID -Continue Lisinopril 20mg BID -Continue PRN Clonidine -Will transfer to floor since Cardene no longer required History of CVA Impression: Chronic cognitive impairment, at baseline the patient does not interact much. reports she has been declining lately. Possible vascular dementia CT 06/30- marked atrophy and old left lacunar infarcts -Continue ASA, Lipitor -Continue BP control -PT/OT following Coronary artery disease, hyperlipidemia Impression: echo unremarkable -Continue ASA, BB, MACEY, statin ID Klebsiella UTI Impression: Klebsiella on 06/26 urine culture -Continue Ciprofloxacin (06/29-) -Will stop Rocephin Electrolyte abnormalities K 3.2 (07/02) -KCl 50 meq x1 -Will monitor and replete as needed -Monitor BMP GI prophylaxis: PPI. Stool softener PRN constipation. DVT PPx: Will resume Lovenox Code Status: Full Code
[2018-07-02] MEDS: Ciprofloxacin 500 MG Tablet PO SCH ×2 (08:00→21:10)
[2018-07-02] MEDS: hydrALAZINE 25 MG Tablet PO SCH ×3 (08:00→17:19)
[2018-07-02] MEDS: amLODIPine 5 MG Tablet PO SCH ×2 (08:01→21:10)
[2018-07-02] MEDS: Lisinopril 20 MG Tablet PO SCH ×2 (08:01→21:10)
[2018-07-02] MEDS: Senna/Docusate Sodium 8.6/50 MG Tablet PO SCH ×2 (08:01→21:10)
[2018-07-02] MEDS: Enoxaparin Inj 40 MG/0.4 ML Syringe SQ SCH (21:10)
[2018-07-03 07:22] LABS: Baso # (Auto) 0.1 th/mm3 (0.0-0.2); Baso % (Auto) 0.6 % (0.0-2.0); Eos # (Auto) 0.1 th/mm3 (0.0-0.4); Eos % (Auto) 0.9 % (0.0-4.0); Hematocrit 40.3 % (35.0-46.0); Hemoglobin 13.6 gm/dL (11.6-15.3); Lymph % (Auto) 8.8 % (9.0-44.0); Mean Corpuscular HGB Conc 33.7 % (32.0-36.0); Mean Corpuscular Volume 91.9 fL (80.0-100.0); Mean Platelet Volume 7.8 fL (7.0-11.0); Mono # (Auto) 0.8 th/mm3 (0.0-0.9); Mono % (Auto) 6.8 % (0.0-8.0); Neut # (Auto) 9.9 th/mm3 (1.8-7.7); Neut % (Auto) 82.9 % (16.0-70.0); Platelet Count 232 th/mm3 (150-450); Red Blood Count 4.38 mil/mm3 (4.00-5.30); Red Cell Distribution Width 14.1 % (11.6-17.2); White Blood Count 11.9 th/mm3 (4.0-11.0)
[2018-07-03 07:52] LABS: Calcium 8.9 mg/dL (8.5-10.1); Carbon Dioxide 22.9 meq/L (21.0-32.0); Potassium 3.5 meq/L (3.5-5.1)
[2018-07-03] MEDS: amLODIPine 5 MG Tablet PO SCH ×2 (10:02→21:45)
[2018-07-03] MEDS: Lisinopril 20 MG Tablet PO SCH ×2 (10:02→21:44)
[2018-07-03] MEDS: Ciprofloxacin 500 MG Tablet PO SCH ×2 (10:02→21:44)
[2018-07-03] MEDS: Senna/Docusate Sodium 8.6/50 MG Tablet PO SCH ×2 (10:03→21:44)
[2018-07-03] MEDS: hydrALAZINE 25 MG Tablet PO SCH ×3 (10:03→17:03)
--- NOTE | 2018-07-03 13:44 | P.PN ---
Subjective Interval history: seen with family at bedside- awake and alert, speech soft but identified all family members denies any pain talking but speech soft ff all command moves all extrmeities- but generalized weakness Physical Exam Vital signs: Vital Signs 07/02/18 14:00 07/02/18 14:01 07/02/18 15:00 Temperature Pulse Rate 69 71 68 Respiratory Rate 22 21 18 Blood Pressure 154/71 H 154/70 H Pulse Oximetry 97 97 07/02/18 16:00 07/03/18 00:00 07/03/18 04:00 Temperature 98.4 F 98 F 97.6 F Pulse Rate 75 70 81 Respiratory Rate 17 18 18 Blood Pressure 155/72 H 152/58 H 126/68 Pulse Oximetry 93 L 94 L 07/03/18 08:00 07/03/18 12:00 Temperature 96.3 F L 97.7 F Pulse Rate 76 69 Respiratory Rate 22 22 Blood Pressure 136/97 H 189/85 H Pulse Oximetry 97 98 Intake & Output 07/02/18 07/03/18 07/03/18 18:59 06:59 18:59 Intake Total 750 / 750 200 / 200 Output Total 350 / 350 700 / 700 Balance 400 / 400 -500 / -500 Weight 70.1 kg Intake: Oral 750 / 750 200 / 200 Output: Urine 350 / 350 700 / 700 Stool 0 / 0 Urine/Stool Mix 0 / 0 Other: # Voids 3 Date of Last Bowel Movement 07/01/18 07/01/18 # Bowel Movements 0 # Incontinent Bowel Movements 0 Narrative: GENERAL: no acute distress CARDIOVASCULAR: Regular rate and rhythm without murmurs. No LE edema. Grossly normal perfusion. RESPIRATORY: CTAB; normal rate GASTROINTESTINAL: Abdomen soft, non-tender, non-distended. Bowel sounds normal MUSCULOSKELETAL: appears weak. No appreciated calf asymmetry NEURO: Alert & Oriented to self. Grossly normal CN. Normal peripheral sensory function; geenralized weakness maybe more weakness on the right PSYCH: Flat affect. Results - Labs CBC & Chem 7: 07/03/18 06:43 07/03/18 06:43 Laboratory Results - last 24 hr 07/03/18 07/03/18 06:43 06:43 WBC 11.9 H RBC 4.38 Hgb 13.6 Hct 40.3 MCV 91.9 MCH 31.0 MCHC 33.7 RDW 14.1 Plt Count 232 MPV 7.8 Neut % (Auto) 82.9 H Lymph % (Auto) 8.8 L [place] % (Auto) 6.8 Eos % (Auto) 0.9 Baso % (Auto) 0.6 Neut # (Auto) 9.9 H Lymph # (Auto) 1.0 [place] # (Auto) 0.8 Eos # (Auto) 0.1 Baso # (Auto) 0.1 WBC Differential . Differential Comment Auto diff final Sodium 139 Potassium 3.5 Chloride 105 Carbon Dioxide 22.9 Anion Gap 11 BUN 17 Creatinine 1.11 H Estimated GFR 50 L Random Glucose 86 Calcium 8.9 Magnesium 2.0 Microbiology 06/28/18 10:54 Blood - Peripheral Aerobic Blood Culture - Final No growth in 5 days 06/28/18 10:54 Blood - Peripheral Anaerobic Blood Culture - Final No growth in 5 days - Procedures NONE Assessment and Plan - Assessment (1) Acute UTI Code(s): N39.0 - Urinary tract infection, site not specified Status: Acute (2) Altered mental status Code(s): R41.82 - Altered mental status, unspecified Status: Acute (3) Hypertensive urgency Code(s): I16.0 - Hypertensive urgency Status: Chronic (4) Hypokalemia Code(s): E87.6 - Hypokalemia Status: Chronic - Plan 63-year-old white female admitted for acute metabolic encephalopathy seen with at bedside- they are here from [place] and is planning to go back there next week per = history of multiple CVA in thep ast and is almost toal assist for past 6 months- she needs assist with bathing, she does feed herself, he her and bathes her Encephalopathy r/o acute neurologic event Generalized weakness- this appears chronic with progressive decline - baseline almost toal assist but per more decline lately Impression: Multifactorial with acute metabolic and hypertensive elements involved superimposed upon chronic impairment from the patient's prior strokes. History of previous multiple CVA - baseline almost total assist for 6 months Chronic cognitive impairment, at baseline the patient does not interact much. reports she has been declining lately. Possible vascular dementia CT 06/26, 06/30- marked atrophy and old left lacunar infarcts. -Continue ASA, Lipitor -Continue BP control -PT/OT following -speech therapy consult -Get MRI of the brain today -continue PT/ST/OT eval -continue on ASA HTN- some eelvated readings Impression: Uncontrolled during hospitalization; requiring Cardene drip for control 07/02-Cardene drip stopped overnight -Continue Amlodipine 5mg BID -Continue Carvedilol 3.125mg BID -Continue Hydralazine 75mg TID -Continue Lisinopril 20mg BID -Continue PRN Clonidine Coronary artery disease, hyperlipidemia Impression: echo unremarkable -Continue ASA, BB, MACEY, statin ID Klebsiella UTI Impression: Klebsiella on 06/26 urine culture -Continue Ciprofloxacin (06/29-) -Will stop Rocephin Electrolyte abnormalities K 3.2 (07/02) -KCl 50 meq x1 -Will monitor and replete as needed -Monitor BMP GI prophylaxis: PPI. Stool softener PRN constipation. DVT PPx: Will resume Lovenox Code Status: Full Code speecxh therapy consult- cognitive and speech dietitian consult CM brian for DC planning
[2018-07-03] MEDS: Enoxaparin Inj 40 MG/0.4 ML Syringe SQ SCH (21:44)
--- NOTE | 2018-07-03 22:59 | MR ---
EXAM DATE: 07/03/2018 10:40 PM EDT AGE/SEX: 63 years / Female INDICATIONS: CVA. CLINICAL DATA: This is the patient's initial encounter. Patient reports that signs and symptoms have been present for 1 day and indicates a pain score of Nonresponsive. MEDICAL/SURGICAL HISTORY: Cardiovascular disease. Coronary artery stent. COMPARISON: No prior exams available for comparison. TECHNIQUE: Multiplanar, multisequence examination of the brain was performed without contrast. FINDINGS: There are fairly extensive bilateral cerebellar infarcts involving predominantly the medial left cere bellar hemisphere and lateral right cerebellar hemisphere. No acute infarct is identified within the supratentorial brain. There are old lacunar infarcts in the periventricular white matter bilaterally. There is severe chronic ischemic changes in the periventricular white matter and also extending into the brainstem. No significant mass effect or midline shift. CONCLUSION: 1. Acute infarcts of both cerebellar hemispheres without significant mass effect. 2. Severe chronic ischemic changes in the periventricular white matter with multiple remote lacunar infarcts in the white matter bilaterally. Also mild chronic ischemic demyelinization in the brainstem . Electronically signed by: Hakeem Torres MD 07/03/2018 10:58 PM EDT
[2018-07-04] MEDS: Senna/Docusate Sodium 8.6/50 MG Tablet PO SCH ×2 (08:26→20:37)
[2018-07-04] MEDS: hydrALAZINE 25 MG Tablet PO SCH ×3 (08:26→17:37)
[2018-07-04] MEDS: amLODIPine 5 MG Tablet PO SCH ×2 (08:26→20:37)
[2018-07-04] MEDS: Lisinopril 20 MG Tablet PO SCH ×2 (08:26→20:37)
[2018-07-04] MEDS: Ciprofloxacin 500 MG Tablet PO SCH ×2 (08:26→20:37)
--- NOTE | 2018-07-04 10:43 | P.PN ---
Subjective Interval history: awake and alert, no complains of pain - slight weakness on the right telemetry in Physical Exam Vital signs: Vital Signs 07/03/18 12:00 07/03/18 16:00 07/03/18 20:00 Temperature 97.7 F 96.8 F L 98.2 F Pulse Rate 69 64 67 Respiratory Rate 22 23 18 Blood Pressure 189/85 H 120/69 111/71 Pulse Oximetry 98 98 96 07/04/18 00:00 07/04/18 04:00 07/04/18 08:00 Temperature 98.2 F 98.3 F 98.4 F Pulse Rate 71 65 75 Respiratory Rate 18 18 18 Blood Pressure 124/77 117/74 115/68 Pulse Oximetry 95 95 97 Intake & Output 07/03/18 07/04/18 07/04/18 18:59 06:59 18:59 Intake Total 360 / 360 680 / 680 Output Total 500 / 500 1300 / 1300 Balance -140 / -140 -620 / -620 Weight 70.5 kg Intake: Oral 360 / 360 680 / 680 Output: Urine 500 / 500 1300 / 1300 Urine/Stool Mix 0 / 0 Other: # Voids 4 Date of Last Bowel Movement 07/01/18 07/01/18 # Bowel Movements 0 Narrative: GENERAL: no acute distress, blunt affect , speech soft but clear CARDIOVASCULAR: Regular rate and rhythm without murmurs. RESPIRATORY: CTAB GASTROINTESTINAL: Abdomen soft, non-tender, non-distended. Bowel sounds normal MUSCULOSKELETAL: appears generalized weakness . No appreciated calf asymmetry NEURO: Alert & Oriented to self. Grossly normal CN. Normal peripheral sensory function; geenralized weakness maybe more weakness on the right Results - Labs CBC & Chem 7: 07/03/18 06:43 07/03/18 06:43 Microbiology 06/28/18 10:54 Blood - Peripheral Aerobic Blood Culture - Final No growth in 5 days 06/28/18 10:54 Blood - Peripheral Anaerobic Blood Culture - Final No growth in 5 days - Imaging Impressions Head MRI 07/03/18 00:00 CONCLUSION: 1. Acute infarcts of both cerebellar hemispheres without significant mass effect. 2. Severe chronic ischemic changes in the periventricular white matter with multiple remote lacunar infarcts in the white matter bilaterally. Also mild chronic ischemic demyelinization in the brainstem. - Procedures NONE Assessment and Plan - Assessment (1) Acute UTI Code(s): N39.0 - Urinary tract infection, site not specified Status: Acute (2) Altered mental status Code(s): R41.82 - Altered mental status, unspecified Status: Acute (3) Hypertensive urgency Code(s): I16.0 - Hypertensive urgency Status: Chronic (4) Hypokalemia Code(s): E87.6 - Hypokalemia Status: Chronic - Plan 63-year-old white female admitted for acute metabolic encephalopathy 07/03 seen with at bedside- they are here from [place] and is planning to go back there next week per = history of multiple CVA in thep ast and is almost toal assist for past 6 months- she needs assist with bathing, she does feed herself, he her and bathes her Acute CVA with bilateral cerebellar infarcts Generalized weakness- chronic with progressive decline - baseline almost toal assist but per more decline lately Impression: Multifactorial with acute metabolic and hypertensive elements involved superimposed upon chronic impairment from the patient's prior strokes. History of previous multiple CVA - baseline almost total assist for 6 months Chronic cognitive impairment, at baseline the patient does not interact much. reports she has been declining lately. Possible vascular dementia CT 06/26, 06/30- marked atrophy and old left lacunar infarcts. -Continue ASA, Lipitor -Continue BP control -PT/OT following -speech therapy consult -continue PT/ST/OT eval - Echo unremarkable. Get carotid US- History of left CEA -continue on ASA - add Plavix Neurology consult - HTN- better readings Impression: Uncontrolled during hospitalization; requiring Cardene drip for control 07/02-Cardene drip stopped overnight -Continue Amlodipine 5mg BID -Continue Carvedilol 3.125mg BID -Continue Hydralazine 75mg TID -Continue Lisinopril 20mg BID -Continue PRN Clonidine Coronary artery disease, hyperlipidemia Impression: echo unremarkable -Continue ASA, BB, MACEY, statin ID Klebsiella UTI Impression: Klebsiella on 06/26 urine culture -on Ciprofloxacin course HYpokalmeia- improved -Will monitor and replete as needed -Monitor BMP GI prophylaxis: PPI. Stool softener PRN constipation. DVT PPx: Will resume Lovenox Code Status: Full Code speecxh therapy consult- cognitive and speech dietitian consult ELIZABETH torres for DC planning- need SNF
--- NOTE | 2018-07-04 11:09 | US ---
EXAM DATE: 07/04/2018 10:58 AM EDT AGE/SEX: 63 years / Female INDICATIONS: Cerebral vascular accident. Uncontrolled hypertension. Altered mental status. CLINICAL DATA: This is the patient's initial encounter. Patient reports that signs and symptoms have been present for 1 day and indicates a pain score of 0/10. MEDICAL/SURGICAL HISTORY: . Hypertension. Coronary artery disease. Cerebral vascular accident . Pressure ulcer. . Left endarterectomy. Coronary artery stent. COMPARISON: No prior exams available for comparison. VELOCITY PARAMETERS: ICA/CCA Ratio: Right 1.0 , Left 2.1 ICA: Right 97 cm/sec, Left 90 cm/sec CCA: Right 93 cm/sec, Left 44 cm/sec ECA: Right 207 cm/sec, Left 38 cm/sec Vertebral: Right 50 cm/sec antegrade, Left 73 cm/sec antegrade FINDINGS: Right Carotid: Moderate arteriosclerotic plaque is visualized.The waveforms are within normal limits . Left Carotid: Moderate. The waveforms are within normal limits. Other: None. CONCLUSION: Stenosis on the left 50-60%. Negative for hemodynamically significant stenosis on the right CT angiography may be of benefit given the history. Electronically signed by: Alfa Barlow MD 07/04/2018 11:08 AM EDT
--- NOTE | 2018-07-04 11:13 | P.CONNEU ---
History of Present Illness Service: Neurology Primary Care Provider: Ko Gallegos MD Chief Complaint: Stroke History of Present Illness: 63-year-old female admitted for mental status changes lower extremity weakness few days prior to admission. Was quite hypertensive history of previous strokes. MR brain scan was performed which demonstrated new acute infarction cerebellum. Spouse states she has had 3 strokes in the past. Slept her with residual cognitive impairment gait imbalance. Flexors strong family history of stroke in the maternal side including her mother grandmother and siblings. They have not discovered any gene or particular diagnosis causing there strokes as of yet. He states she stopped taking medications as not been taking any antiplatelets or blood thinners for some time. He moved out from [place] however spouse states that they are likely to move back up. Review of Systems All other systems reviewed negative except as stated in [facility] - History History Provided By: Patient, Family Member - Medical History Medical History: Medical History (Last Reviewed 07/04/18 @ 08:52 by Mireya Flaherty [employer]inder Setup Operator, [employer]) CAD (coronary artery disease) CVA (cerebral vascular accident) Medical history unknown Pressure ulcer - Tobacco History Second Hand Smoke Exposure: Yes Tobacco Use In Past 30 Days: Yes Smoking Status: Current every day smoker Tobacco Type: Cigarettes - Alcohol History How Often Do You Have a Drink Containing Alcohol: Never - Substance Use History Substance History: No History of Abuse - Travel History Recent Travel in the [place] Within the Last 8 Weeks: No Recent Travel Out of the Country Within the Last 8 Weeks: No - Immunization History Tetanus Immunization: Unable to Assess Hx Influenza Vaccine This Season: Unable to Assess Medications and Allergies Active Medications: Active Medications Amlodipine Besylate (Norvasc) 5 mg PO BID [facility] Last Admin: 07/04/18 08:26 Dose: 5 mg Aspirin (Ecotrin) 81 mg PO DAILY [facility] Last Admin: 07/04/18 08:26 Dose: 81 mg Atorvastatin Calcium (Lipitor) 40 mg PO HS [facility] Last Admin: 07/03/18 21:45 Dose: 40 mg Carvedilol (Coreg) 3.125 mg PO BID [facility] Last Admin: 07/04/18 08:26 Dose: 3.125 mg Ciprofloxacin HCl (Cipro) 500 mg PO Q12HR [facility] Stop: 07/06/18 12:59 Last Admin: 07/04/18 08:26 Dose: 500 mg Clonidine HCl (Catapres) 0.1 mg PO Q6H PRN PRN Reason: SBP>180, DBP>95 Last Admin: 06/30/18 00:19 Dose: 0.1 mg Clopidogrel Bisulfate (Plavix) 75 mg PO DAILY [facility] Last Admin: 07/04/18 08:33 Dose: 75 mg Enalaprilat (Vasotec Inj) 1.25 mg IV.PUSH Q4HR PRN PRN Reason: SBP>180, DBP>110 Last Admin: 06/30/18 01:48 Dose: 1.25 mg Enoxaparin Sodium (Lovenox Inj) 40 mg SQ DAILY@2100 [facility] Last Admin: 07/03/18 21:44 Dose: 40 mg Hydralazine HCl (Apresoline) 75 mg PO TID [facility] Last Admin: 07/04/18 08:26 Dose: 75 mg Lisinopril (Prinivil) 20 mg PO BID [facility] Last Admin: 07/04/18 08:26 Dose: 20 mg Senna/Docusate Sodium (Pat-Colace) 1 tab PO BID [facility] Last Admin: 07/04/18 08:26 Dose: 1 tab Sodium Chloride (Ns Flush) 2 ml IV.FLUSH PRN PRN PRN Reason: FLUSH AFTER USING IV ACCESS Last Admin: 07/02/18 08:01 Dose: 2 ml Sodium Chloride (Ns Flush) 2 ml IV.FLUSH BID [facility] Last Admin: 07/04/18 08:30 Dose: 2 ml Allergies Allergy/AdvReac Type Severity Reaction Status Date / Time codeine Allergy ALELRGY Verified 06/26/18 13:19 Exam Vital signs: Vital Signs 07/03/18 12:00 07/03/18 16:00 07/03/18 20:00 Temperature 97.7 F 96.8 F L 98.2 F Pulse Rate 69 64 67 Respiratory Rate 22 23 18 Blood Pressure 189/85 H 120/69 111/71 Pulse Oximetry 98 98 96 07/04/18 00:00 07/04/18 04:00 07/04/18 08:00 Temperature 98.2 F 98.3 F 98.4 F Pulse Rate 71 65 75 Respiratory Rate 18 18 18 Blood Pressure 124/77 117/74 115/68 Pulse Oximetry 95 95 97 Intake & Output 07/03/18 07/04/18 07/04/18 18:59 06:59 18:59 Intake Total 360 / 360 680 / 680 Output Total 500 / 500 1300 / 1300 Balance -140 / -140 -620 / -620 Weight 70.5 kg Intake: Oral 360 / 360 680 / 680 Output: Urine 500 / 500 1300 / 1300 Urine/Stool Mix 0 / 0 Other: # Voids 4 Date of Last Bowel Movement 07/01/18 07/01/18 # Bowel Movements 0 Narrative: GENERAL: in NAD, SKIN: Warm and dry. HEAD: Atraumatic. Normocephalic. EYES: Pupils equal and round. No scleral icterus. ENT: No nasal bleeding or discharge. Mucous membranes pink and moist. NECK: Trachea midline. No JVD. CARDIOVASCULAR: Regular rate and rhythm. RESPIRATORY: No accessory muscle use. GASTROINTESTINAL: Abdomen soft, non-tender, nondistended. MUSCULOSKELETAL: Resting arousable states her name follow some simple motor requests no gaze deviations OU 3 2 mm bilaterally no facial asymmetry able raise upper extremity gravity no drift mild dystaxia reduced fine finger movements. Mild bilateral paraparesis although able to raise no drop both lower extremity gravity further sensory examination limited gait testing limited msr 1-2+ sym, no clonus, planterflexor, PSYCHIATRIC: Calm pleasant - Constitutional no acute distress - Routine HEENT Exam Head: Present: normocephalic Eye: Present: EOMI Results - Labs CBC & Chem 7: 07/03/18 06:43 07/03/18 06:43 - Imaging Impressions Head MRI 07/03/18 00:00 CONCLUSION: 1. Acute infarcts of both cerebellar hemispheres without significant mass effect. 2. Severe chronic ischemic changes in the periventricular white matter with multiple remote lacunar infarcts in the white matter bilaterally. Also mild chronic ischemic demyelinization in the brainstem. Carotid Doppler Study 07/04/18 00:00 CONCLUSION: Stenosis on the left 50-60%. Negative for hemodynamically significant stenosis on the right CT angiography may be of benefit given the history. Review/Management - Diagnosis (1) Leukoencephalopathy Code(s): G93.49 - Other encephalopathy Status: Acute Current Visit: Yes (2) Cerebellar stroke, acute Code(s): I63.9 - Cerebral infarction, unspecified Status: Acute Current Visit: Yes (3) Altered mental status Code(s): R41.82 - Altered mental status, unspecified Status: Acute Current Visit: Yes (4) Hypertensive urgency Code(s): I16.0 - Hypertensive urgency Status: Chronic Current Visit: Yes - Review/Management Plan: Moderate sized bilateral cerebellar strokes occurring the posterior circulation. Likely explains her gait imbalance and lower extremity weakness. She has severe leukoencephalopathy white matter changes occurring in a symmetric distribution on her MRI scan. In addition has a strong family history of strokes in the maternal side. I suspect a genetic/metabolic condition such as leukodystrophy as a cause of the strokes. i.e. Selvin-Sachs disease adult onset, Tom disease, etc. Based on the amount and symmetry of the white matter disease burden do not think it is capsule Left carotid 56% stenosis. Not clinically relevant not responsible for cerebellar strokes. Serial monitoring Recommendations Antiplatelet stroke factor reduction blood pressure lipid control Compliance of medications We will obtain hematological evaluation to exclude hypercoagulable state, felt to be lesser likely She get further evaluation at [facility] possibly with special education superintendent or patient transition specialist for leukodystrophy workup as a cause of her strokes. Therapy Will likely require inpatient rehab
[2018-07-04 15:44] LABS: Chol/HDL Ratio 2.51 Ratio; HDL Cholesterol 34.6 mg/dL (40.0-60.0)
[2018-07-04] MEDS: Enoxaparin Inj 40 MG/0.4 ML Syringe SQ SCH (20:38)
--- NOTE | 2018-07-05 04:54 | MB ---
cc: Melvi Ortiz MD DATE: 07/04/2018 REASON FOR CONSULTATION: Consult requested by Dr. Joyce for evaluation of possible hypercoagulable state in a patient who has a recurrent stroke. HISTORY OF PRESENT ILLNESS: Zamzam is a 63-year-old female. She is a poor historian due to her recent stroke. History is obtained through the review of the records in the EMR. The patient was brought into the emergency room by her on 06/29/2018 with change in mental status. The patient previously has a history of stroke. On admission, the patient's blood pressure was found to be elevated. A CT scan of the head was negative. Neurology has been consulted. DR Magaña saw the pt. He is requesting hematology consult for hypercoagulable state. REVIEW OF SYSTEM: not possible due to stroke. PAST MEDICAL HISTORY: Coronary artery disease, CVA, hypertension. ALLERGIES: CODEINE. MEDICATIONS: Labetalol. FAMILY HISTORY: Significant for stroke. SOCIAL HISTORY: The patient does not smoke cigarettes, does not drink alcohol. PHYSICAL EXAMINATION: GENERAL: She is a well-developed female. VITAL SIGNS: Temperature 98.7, heart rate 73, blood pressure 111/81. HEAD, EYES, EARS, NOSE, AND THROAT: Pupils equal, round, reactive to light and accommodation, extraocular movements intact. Anicteric. No oral lesions noted. No thrush noted. NECK: Supple. No JVD. No masses noted. LUNGS: Clear. No wheezing, rhonchi, or rales. HEART: Regular rate and rhythm. No murmur heard. ABDOMEN: Soft and nontender. No hepatosplenomegaly. No abnormal bowel sounds. No guarding or rigidity noted. EXTREMITIES: No pedal edema. No cyanosis, no clubbing. SKIN: No bruises or petechiae noted. BREASTS: No masses noted. LYMPH NODES: No cervical, supraclavicular, or axillary lymphadenopathy noted. BACK: There is no spinal tenderness noted. NEUROLOGIC: The patient is awake, alert, but has expressive aphasia. ASSESSMENT: Recurrent stroke. PLAN: I have reviewed her available records. I have ordered hypercoagulable panel due to the history of recurrent strokes and also family history of stroke. The results will take 2 weeks to come back. If the patient is discharged to home, then she needs to call our office to make an appointment to go over the results of the hypercoagulable panel. Also, the records indicated that patient is planning to go back to [place] to be close to her children. If that is the case, then the hypercoagulable panel results could be forwarded to her primary physician in [place] once they get settled there. Thank you for asking my opinion. MD EZEKIEL Krishna/isaura , 12:26 AM , 12:35 AM MICHAEL
[2018-07-05 07:40] LABS: Calcium 8.3 mg/dL (8.5-10.1); Carbon Dioxide 23.6 meq/L (21.0-32.0); Potassium 3.5 meq/L (3.5-5.1)
[2018-07-05] MEDS: Ciprofloxacin 500 MG Tablet PO SCH ×2 (08:27→20:33)
[2018-07-05] MEDS: Senna/Docusate Sodium 8.6/50 MG Tablet PO SCH ×2 (08:27→20:33)
[2018-07-05] MEDS: amLODIPine 5 MG Tablet PO SCH ×2 (08:27→20:33)
[2018-07-05] MEDS: hydrALAZINE 25 MG Tablet PO SCH ×3 (08:27→17:24)
[2018-07-05] MEDS: Lisinopril 20 MG Tablet PO SCH ×2 (08:28→20:33)
--- NOTE | 2018-07-05 10:42 | P.DIET ---
Nutritional Evaluation Type of nutrition evaluation: initial Nutrition screening: [facility] (poor po intake) Screening comments: No ht available. Used nurse's estimate of 66 inches for calculations. Subjective Subjective Comments: Pt's nurse reports pt needs assistance to eat and also needs strong encouragement. Po intake recorded yesterday was 50-100% Objective - Diagnosis AMS, uncontrolled hypertension - Objective % IBW: 120 (IBW = 130#) Body Weight Used for Calculations: Actual (71.2 kg) Energy Needs - Lower Range (kCal/kg): 25 Energy Needs - Upper Range (kCal/kg): 30 Lower Limit kCal/kg (kCals): 1,780 Upper Limit kCal/kg (kCals): 2,136 Lower Limit Protein Factor (Grams per Kg): 1.0 Upper Limit Protein Factor (Grams per Kg): 1.5 Lower Protein Needs (Protein): 71 Upper Protein Needs (Protein): 107 Fluid Factor (ml/kg): 30 Estimated Fluid Needs (ml): 2,136 Dietitian Reviewed in Medical Record: Current diet, Curent medications, Intake & Output, Labs, Medical history Diet Order: Heart Healthy Assessment Assessment: MDC for poor po intake acknowledged. Pt's po intake is good at this time and her wt is wnl of IBW range. Pt does need assisatnce and encouragement to eat. Will send Ensure Enlive on trays and monitor acceptance. each 8 oz serving provides 350 kcals and 20 gms protein. Recommendations: 1. Continue cuurent diet 2. Ensure Enlive tid 3. Please assist and encourage at meals 4. Obtain actual ht Dietitian to Monitor: Lab values, Supplement acceptance, Intake & Output, Diet tolerance, Weight change, PO Intake, Swallow recommendations, Medical course
--- NOTE | 2018-07-05 12:44 | P.PN ---
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 with both arms ff all commands Physical Exam Vital signs: Vital Signs 07/04/18 16:00 07/04/18 20:00 07/05/18 00:00 Temperature 98.7 F 98.7 F 98.2 F Pulse Rate 72 67 72 Respiratory Rate 18 18 18 Blood Pressure 169/75 H 111/81 108/72 Pulse Oximetry 94 L 96 96 07/05/18 04:00 07/05/18 08:00 Temperature 98.1 F 98.1 F Pulse Rate 76 65 Respiratory Rate 18 18 Blood Pressure 121/73 151/79 H Pulse Oximetry 95 97 Intake & Output 07/04/18 07/05/18 07/05/18 18:59 06:59 18:59 Intake Total 480 / 480 300 / 300 Output Total 500 / 500 650 / 650 Balance -20 / -20 -350 / -350 Weight 71.2 kg Intake: Oral 480 / 480 300 / 300 Output: Urine 500 / 500 650 / 650 Other: Date of Last Bowel Movement 07/01/18 07/05/18 # Bowel Movements 3 Narrative: GENERAL: no acute distress, blunt affect , speech soft but clear, spoke today, ff all commands CARDIOVASCULAR: Regular rate and rhythm without murmurs. RESPIRATORY: CTAB GASTROINTESTINAL: Abdomen soft, non-tender, non-distended. Bowel sounds normal MUSCULOSKELETAL: appears generalized weakness . No appreciated calf asymmetry NEURO: Alert & Oriented to self. Grossly normal CN. Normal peripheral sensory function; geenralized weakness Results - Labs CBC & Chem 7: 07/03/18 06:43 07/05/18 06:47 Laboratory Results - last 24 hr 07/04/18 07/05/18 14:44 06:47 Sodium 141 Potassium 3.5 Chloride 107 Carbon Dioxide 23.6 Anion Gap 10 BUN 20 H Creatinine 1.13 H Estimated GFR 49 L Random Glucose 91 Calcium 8.3 L Triglycerides 98 Cholesterol 87 L LDL Cholesterol, Calc 33 HDL Cholesterol 34.6 L Cholesterol/HDL Ratio 2.51 - Procedures NONE Assessment and Plan - Assessment (1) Acute UTI Code(s): N39.0 - Urinary tract infection, site not specified Status: Acute (2) Altered mental status Code(s): R41.82 - Altered mental status, unspecified Status: Acute (3) Hypertensive urgency Code(s): I16.0 - Hypertensive urgency Status: Chronic (4) Hypokalemia Code(s): E87.6 - Hypokalemia Status: Chronic - Plan 63-year-old white female admitted for acute metabolic encephalopathy 07/03 seen with at bedside- they are here from [place] and is planning to go back there next week per = history of multiple CVA in the past and is almost toal assist for past 6 months- she needs assist with bathing, she does feed herself, he her and bathes her Acute CVA with bilateral cerebellar infarcts r/o Leukodystrophy Generalized weakness- chronic with progressive decline - baseline almost toal assist but per more decline lately History of previous multiple CVA - baseline almost total assist for 6 months Chronic cognitive impairment, at baseline the patient does not interact much. reports she has been declining lately. Possible vascular dementia CT 06/26, 06/30- marked atrophy and old left lacunar infarcts. -Continue ASA, Lipitor -Continue BP control -PT/OT following -speech therapy consult -continue PT/ST/OT eval - Echo unremarkable. Get carotid US- History of left CEA -continue on ASA - add Plavix Neurology consulted- d/w Dr. Thompson ? r/o Selvin Sach's disease- special blood works ordered -Hematology service was consulted- to r/o hypercoaguable state HTN- better readings Impression: Uncontrolled during hospitalization; requiring Cardene drip for control 07/02-Cardene drip off -Continue Amlodipine 5mg BID -Continue Carvedilol 3.125mg BID -Continue Hydralazine 75mg TID -Continue Lisinopril 20mg BID -Continue PRN Clonidine Coronary artery disease, hyperlipidemia Impression: echo unremarkable -Continue ASA, BB, MACEY, statin ID Klebsiella UTI Impression: Klebsiella on 06/26 urine culture -on Ciprofloxacin course HYpokalmeia- improved -Will monitor and replete as needed -Monitor BMP GI prophylaxis: PPI. Stool softener PRN constipation. DVT PPx: Will resume Lovenox Code Status: Full Code speecxh therapy consult- cognitive and speech dietitian consult CM brian for DC planning- need SNF- Kirill consulted - plan was for him to go back to [place] eventually
--- NOTE | 2018-07-05 13:38 | P.PNNEU ---
Subjective Subjective Comments: no cp, no dyspnea, no dias, no focal weakness, no vision loss Active Medications: Active Medications Amlodipine Besylate (Norvasc) 5 mg PO BID [facility] Last Admin: 07/05/18 08:27 Dose: 5 mg Aspirin (Ecotrin) 81 mg PO DAILY [facility] Last Admin: 07/05/18 08:28 Dose: 81 mg Atorvastatin Calcium (Lipitor) 40 mg PO HS [facility] Last Admin: 07/04/18 20:37 Dose: 40 mg Carvedilol (Coreg) 3.125 mg PO BID [facility] Last Admin: 07/05/18 08:27 Dose: 3.125 mg Ciprofloxacin HCl (Cipro) 500 mg PO Q12HR [facility] Stop: 07/06/18 12:59 Last Admin: 07/05/18 08:27 Dose: 500 mg Clonidine HCl (Catapres) 0.1 mg PO Q6H PRN PRN Reason: SBP>180, DBP>95 Last Admin: 06/30/18 00:19 Dose: 0.1 mg Clopidogrel Bisulfate (Plavix) 75 mg PO DAILY [facility] Last Admin: 07/05/18 08:27 Dose: 75 mg Cyanocobalamin (Vitamin B12 Inj) 1,000 mcg IM DAILY [facility] Stop: 07/10/18 09:01 Last Admin: 07/05/18 08:28 Dose: 1,000 mcg Cyanocobalamin (Vitamin B12 Inj) 1,000 mcg IM Q7D [facility] Stop: 08/08/18 09:01 Cyanocobalamin (Vitamin B12 Inj) 1,000 mcg IM Q30D [facility] Enalaprilat (Vasotec Inj) 1.25 mg IV.PUSH Q4HR PRN PRN Reason: SBP>180, DBP>110 Last Admin: 06/30/18 01:48 Dose: 1.25 mg Enoxaparin Sodium (Lovenox Inj) 40 mg SQ DAILY@2100 [facility] Last Admin: 07/04/18 20:38 Dose: 40 mg Hydralazine HCl (Apresoline) 75 mg PO TID [facility] Last Admin: 07/05/18 12:17 Dose: 75 mg Lisinopril (Prinivil) 20 mg PO BID [facility] Last Admin: 07/05/18 08:28 Dose: 20 mg Senna/Docusate Sodium (Pat-Colace) 1 tab PO BID [facility] Last Admin: 07/05/18 08:27 Dose: 1 tab Sodium Chloride (Ns Flush) 2 ml IV.FLUSH PRN PRN PRN Reason: FLUSH AFTER USING IV ACCESS Last Admin: 07/02/18 08:01 Dose: 2 ml Sodium Chloride (Ns Flush) 2 ml IV.FLUSH BID [facility] Last Admin: 07/05/18 08:28 Dose: 2 ml Allergies/Adverse Reactions: Allergies Allergy/AdvReac Type Severity Reaction Status Date / Time codeine Allergy ALELRGY Verified 06/26/18 13:19 Review of Systems All other systems reviewed negative except as stated in HPI Physical Exam Vital signs: Vital Signs 07/04/18 16:00 07/04/18 20:00 07/05/18 00:00 Temperature 98.7 F 98.7 F 98.2 F Pulse Rate 72 67 72 Respiratory Rate 18 18 18 Blood Pressure 169/75 H 111/81 108/72 Pulse Oximetry 94 L 96 96 07/05/18 04:00 07/05/18 08:00 07/05/18 12:00 Temperature 98.1 F 98.1 F Pulse Rate 76 65 69 Respiratory Rate 18 Blood Pressure 121/73 151/79 H Pulse Oximetry 95 97 Intake & Output 07/04/18 07/05/18 07/05/18 18:59 06:59 18:59 Intake Total 480 / 480 300 / 300 Output Total 500 / 500 650 / 650 Balance -20 / -20 -350 / -350 Weight 71.2 kg Intake: Oral 480 / 480 300 / 300 Output: Urine 500 / 500 650 / 650 Other: Date of Last Bowel Movement 07/01/18 07/05/18 # Bowel Movements 3 Narrative: GENERAL: in NAD, SKIN: Warm and dry. HEAD: Atraumatic. Normocephalic. EYES: Pupils equal and round. No scleral icterus. ENT: No nasal bleeding or discharge. Mucous membranes pink and moist. NECK: Trachea midline. No JVD. CARDIOVASCULAR: Regular rate and rhythm. RESPIRATORY: No accessory muscle use. GASTROINTESTINAL: Abdomen soft, non-tender, nondistended. MUSCULOSKELETAL: More alert disfluency, slow speech, facial hypovolemia, no involuntary movements, no gaze deviations OU 3 2 mm bilaterally no facial asymmetry able raise upper extremity gravity no drift mild dystaxia reduced fine finger movements. Mild bilateral paraparesis although able to raise no drop both lower extremity gravity further sensory examination limited gait testing limited msr 1-2+ sym, no clonus, planterflexor, PSYCHIATRIC: Calm pleasant - Constitutional no acute distress - Routine HEENT Exam Head: Present: normocephalic Objective Laboratory Results - last 24 hr 07/04/18 07/05/18 14:44 06:47 Sodium 141 Potassium 3.5 Chloride 107 Carbon Dioxide 23.6 Anion Gap 10 BUN 20 H Creatinine 1.13 H Estimated GFR 49 L Random Glucose 91 Calcium 8.3 L Triglycerides 98 Cholesterol 87 L LDL Cholesterol, Calc 33 HDL Cholesterol 34.6 L Cholesterol/HDL Ratio 2.51 Review/Management - Diagnosis (1) Leukoencephalopathy Code(s): G93.49 - Other encephalopathy Status: Acute Current Visit: Yes (2) Cerebellar stroke, acute Code(s): I63.9 - Cerebral infarction, unspecified Status: Acute Current Visit: Yes (3) Altered mental status Code(s): R41.82 - Altered mental status, unspecified Status: Acute Current Visit: Yes (4) Hypertensive urgency Code(s): I16.0 - Hypertensive urgency Status: Chronic Current Visit: Yes - Review/Management Plan: Moderate sized bilateral cerebellar strokes occurring the posterior circulation. Likely explains her gait imbalance and lower extremity weakness. She has severe leukoencephalopathy white matter changes occurring in a symmetric distribution on her MRI scan. In addition has a strong family history of strokes in the maternal side. I suspect a genetic/metabolic condition such as leukodystrophy as a cause of the strokes. i.e. Selvin-Sachs disease adult onset, Tom disease, etc. Based on the amount and symmetry of the white matter disease burden do not think it is capsule Left carotid 56% stenosis. Not clinically relevant not responsible for cerebellar strokes. Serial monitoring Recommendations Neuro stable Antiplatelet stroke factor reduction blood pressure lipid control Compliance of medications Appreciate hematological evaluation She get further evaluation at [facility] possibly with application trainer or client relation specialist for leukodystrophy workup as a cause of her strokes. Therapy Discussed with medical Will likely require inpatient rehab
[2018-07-05] MEDS: Enoxaparin Inj 40 MG/0.4 ML Syringe SQ SCH (20:33)
--- NOTE | 2018-07-05 20:42 | P.PNONC ---
Subjective Interval history: No new complaint Objective Vital Signs/Intake & Output: Vital Signs 07/05/18 00:00 07/05/18 04:00 07/05/18 08:00 Temperature 98.2 F 98.1 F 98.1 F Pulse Rate 72 76 65 Respiratory Rate 18 18 18 Blood Pressure 108/72 121/73 151/79 H Pulse Oximetry 96 95 97 07/05/18 12:00 07/05/18 16:00 Temperature 97.3 F L 97.4 F L Pulse Rate 66 67 Respiratory Rate 18 18 Blood Pressure 159/74 H 142/68 H Pulse Oximetry 94 L 97 Intake & Output 07/05/18 07/05/18 07/06/18 06:59 18:59 06:59 Intake Total 300 / 300 480 / 480 Output Total 650 / 650 200 / 200 Balance -350 / -350 280 / 280 Weight 71.2 kg Intake: Oral 300 / 300 480 / 480 Output: Urine 650 / 650 200 / 200 Other: Date of Last Bowel Movement 07/05/18 # Bowel Movements 3 Result Diagrams: 07/03/18 06:43 07/05/18 06:47 Laboratory Results: Laboratory Results - last 24 hr 07/05/18 06:47 Sodium 141 Potassium 3.5 Chloride 107 Carbon Dioxide 23.6 Anion Gap 10 BUN 20 H Creatinine 1.13 H Estimated GFR 49 L Random Glucose 91 Calcium 8.3 L Culture Results: Microbiology 06/28/18 10:54 Aerobic Blood Culture - Final Blood - Peripheral No growth in 5 days Anaerobic Blood Culture - Final No growth in 5 days Medications: Active Medications Generic Name Dose Route Start Last Admin Trade Name Ismaelq PRN Reason Stop Dose Admin Amlodipine Besylate 5 mg 06/30/18 21:00 07/05/18 20:33 Norvasc PO 5 mg BID [facility] Administration Aspirin 81 mg 06/27/18 09:00 07/05/18 08:28 Ecotrin PO 81 mg DAILY [facility] Administration Atorvastatin Calcium 40 mg 06/26/18 21:00 07/05/18 20:33 Lipitor PO 40 mg HS [facility] Administration Carvedilol 3.125 mg 06/26/18 21:00 07/05/18 20:33 Coreg PO 3.125 mg BID [facility] Administration Ciprofloxacin HCl 500 mg 06/29/18 13:00 07/05/18 20:33 Cipro PO 07/06/18 12:59 500 mg Q12HR [facility] Administration Clonidine HCl 0.1 mg 06/29/18 16:47 06/30/18 00:19 Catapres PO 0.1 mg Q6H PRN Administration SBP>180, DBP>95 Clopidogrel Bisulfate 75 mg 07/04/18 09:00 07/05/18 08:27 Plavix PO 75 mg DAILY [facility] Administration Cyanocobalamin 1,000 mcg 07/04/18 15:00 07/05/18 08:28 Vitamin B12 Inj IM 07/10/18 09:01 1,000 mcg DAILY [facility] Administration Enalaprilat 1.25 mg 06/26/18 16:35 06/30/18 01:48 Vasotec Inj IV.PUSH 1.25 mg Q4HR PRN Administration SBP>180, DBP>110 Enoxaparin Sodium 40 mg 07/02/18 21:00 07/05/18 20:33 Lovenox Inj SQ 40 mg DAILY@2100 [facility] Administration Hydralazine HCl 75 mg 07/01/18 20:00 07/05/18 17:24 Apresoline PO 75 mg TID [facility] Administration Lisinopril 20 mg 06/29/18 21:00 07/05/18 20:33 Prinivil PO 20 mg BID [facility] Administration Senna/Docusate Sodium 1 tab 06/29/18 21:00 07/05/18 20:33 Pat-Colace PO 1 tab BID [facility] Administration Sodium Chloride 2 ml 06/26/18 15:53 07/02/18 08:01 Ns Flush IV.FLUSH 2 ml PRN PRN Administration FLUSH AFTER USING IV ACCESS Sodium Chloride 2 ml 06/26/18 21:00 07/05/18 20:34 Ns Flush IV.FLUSH 2 ml BID [facility] Administration Objective Remarks: GENERAL: Well-nourished, well-developed patient. SKIN: Warm and dry. HEAD: Normocephalic. EYES: No scleral icterus. No injection or drainage. NECK: Supple, trachea midline. No JVD or lymphadenopathy. LYMPHATIC: No adenopathy. CARDIOVASCULAR: Regular rate and rhythm without murmurs. RESPIRATORY: Breath sounds equal bilaterally. No accessory muscle use. GASTROINTESTINAL: Abdomen soft, non-tender, nondistended. EXTREMITIES: No cyanosis, or edema. MUSCULOSKELETAL: Adequate muscle tone. NEUROLOGICAL: Awake, alert, Assessment/Plan (1) Cerebellar stroke, acute Code(s): I63.9 - Cerebral infarction, unspecified Status: Acute - Plan Hypercoagulable panel drawn today It will take 2 weeks to get the results back
[2018-07-06] MEDS: hydrALAZINE 25 MG Tablet PO SCH ×2 (09:01→12:28)
[2018-07-06] MEDS: amLODIPine 5 MG Tablet PO SCH (09:02)
[2018-07-06] MEDS: Ciprofloxacin 500 MG Tablet PO SCH (09:02)
[2018-07-06] MEDS: Senna/Docusate Sodium 8.6/50 MG Tablet PO SCH (09:02)
[2018-07-06] MEDS: Lisinopril 20 MG Tablet PO SCH (09:03)
[2018-07-06 09:15] VITALS: RESP 16
--- NOTE | 2018-07-06 10:13 | P.PNNEU ---
Subjective Medication List: No cp, no dyspnea, no dias, no focal weakness, no vision loss Active Medications: Active Medications Amlodipine Besylate (Norvasc) 5 mg PO BID [facility] Last Admin: 07/06/18 09:02 Dose: 5 mg Aspirin (Ecotrin) 81 mg PO DAILY [facility] Last Admin: 07/06/18 09:03 Dose: 81 mg Atorvastatin Calcium (Lipitor) 40 mg PO HS [facility] Last Admin: 07/05/18 20:33 Dose: 40 mg Carvedilol (Coreg) 3.125 mg PO BID [facility] Last Admin: 07/06/18 09:02 Dose: 3.125 mg Ciprofloxacin HCl (Cipro) 500 mg PO Q12HR [facility] Stop: 07/06/18 12:59 Last Admin: 07/06/18 09:02 Dose: 500 mg Clonidine HCl (Catapres) 0.1 mg PO Q6H PRN PRN Reason: SBP>180, DBP>95 Last Admin: 06/30/18 00:19 Dose: 0.1 mg Clopidogrel Bisulfate (Plavix) 75 mg PO DAILY [facility] Last Admin: 07/06/18 09:02 Dose: 75 mg Cyanocobalamin (Vitamin B12 Inj) 1,000 mcg IM DAILY [facility] Stop: 07/10/18 09:01 Last Admin: 07/06/18 09:02 Dose: 1,000 mcg Cyanocobalamin (Vitamin B12 Inj) 1,000 mcg IM Q7D [facility] Stop: 08/08/18 09:01 Cyanocobalamin (Vitamin B12 Inj) 1,000 mcg IM Q30D [facility] Enalaprilat (Vasotec Inj) 1.25 mg IV.PUSH Q4HR PRN PRN Reason: SBP>180, DBP>110 Last Admin: 06/30/18 01:48 Dose: 1.25 mg Enoxaparin Sodium (Lovenox Inj) 40 mg SQ DAILY@2100 [facility] Last Admin: 07/05/18 20:33 Dose: 40 mg Hydralazine HCl (Apresoline) 75 mg PO TID [facility] Last Admin: 07/06/18 09:01 Dose: 75 mg Lisinopril (Prinivil) 20 mg PO BID [facility] Last Admin: 07/06/18 09:03 Dose: 20 mg Senna/Docusate Sodium (Pat-Colace) 1 tab PO BID [facility] Last Admin: 07/06/18 09:02 Dose: 1 tab Sodium Chloride (Ns Flush) 2 ml IV.FLUSH PRN PRN PRN Reason: FLUSH AFTER USING IV ACCESS Last Admin: 07/02/18 08:01 Dose: 2 ml Sodium Chloride (Ns Flush) 2 ml IV.FLUSH BID [facility] Last Admin: 07/06/18 09:03 Dose: 2 ml Allergies/Adverse Reactions: Allergies Allergy/AdvReac Type Severity Reaction Status Date / Time codeine Allergy ALELRGY Verified 06/26/18 13:19 Review of Systems All other systems reviewed negative except as stated in HPI Physical Exam Vital signs: Vital Signs 07/05/18 12:00 07/05/18 16:00 07/05/18 20:00 Temperature 97.3 F L 97.4 F L 97.7 F Pulse Rate 66 67 64 Respiratory Rate 18 18 18 Blood Pressure 159/74 H 142/68 H 157/74 H Pulse Oximetry 94 L 97 93 L 07/05/18 23:49 07/06/18 00:00 07/06/18 04:00 Temperature 96.6 F L 96 F L Pulse Rate 67 67 78 Respiratory Rate 20 20 Blood Pressure 152/72 H 140/67 Pulse Oximetry 94 L 94 L 07/06/18 08:00 Temperature 98.1 F Pulse Rate 78 Respiratory Rate 16 Blood Pressure 133/73 Pulse Oximetry 94 L Intake & Output 07/05/18 07/06/18 07/06/18 18:59 06:59 18:59 Intake Total 480 / 480 200 / 200 Output Total 200 / 200 400 / 400 Balance 280 / 280 -200 / -200 Weight 71.1 kg Intake: Oral 480 / 480 200 / 200 Output: Urine 200 / 200 400 / 400 Other: Date of Last Bowel Movement 07/05/18 # Bowel Movements 3 Narrative: GENERAL: in NAD, sitting up working with therapy SKIN: Warm and dry. HEAD: Atraumatic. Normocephalic. EYES: Pupils equal and round. No scleral icterus. ENT: No nasal bleeding or discharge. Mucous membranes pink and moist. NECK: Trachea midline. No JVD. CARDIOVASCULAR: Regular rate and rhythm. RESPIRATORY: No accessory muscle use. GASTROINTESTINAL: Abdomen soft, non-tender, nondistended. MUSCULOSKELETAL: alert disfluency, slow speech, facial hypovolemia, no involuntary movements, no gaze deviations OU 3 2 mm bilaterally no facial asymmetry able raise upper extremity gravity no drift mild dystaxia reduced fine finger movements. Mild bilateral paraparesis although able to raise no drop both lower extremity gravity further sensory examination limited gait testing limited msr 1-2+ sym, no clonus, planterflexor, PSYCHIATRIC: Calm pleasant - Constitutional no acute distress - Routine HEENT Exam Head: Present: normocephalic Eye: Present: EOMI Review/Management - Diagnosis (1) Leukoencephalopathy Code(s): G93.49 - Other encephalopathy Status: Acute Current Visit: Yes (2) Cerebellar stroke, acute Code(s): I63.9 - Cerebral infarction, unspecified Status: Acute Current Visit: Yes (3) Altered mental status Code(s): R41.82 - Altered mental status, unspecified Status: Acute Current Visit: Yes (4) Hypertensive urgency Code(s): I16.0 - Hypertensive urgency Status: Chronic Current Visit: Yes - Review/Management Plan: Moderate sized bilateral cerebellar strokes occurring the posterior circulation. Likely explains her gait imbalance and lower extremity weakness. She has severe leukoencephalopathy white matter changes occurring in a symmetric distribution on her MRI scan. In addition has a strong family history of strokes in the maternal side. I suspect a genetic/metabolic condition such as leukodystrophy as a cause of the strokes. i.e. Selvin-Sachs disease adult onset, Tom disease, etc. Based on the amount and symmetry of the white matter disease burden do not think it is capsule Left carotid 50-60% stenosis. Not clinically relevant not responsible for cerebellar strokes. Serial monitoring Recommendations Neuro stable. Vitals stable blood pressure control. Mild leukocytosis although no fever. Plavix added Antiplatelet stroke factor reduction blood pressure lipid control Compliance of medications Appreciate hematological evaluation She get further evaluation at [facility] possibly with reliability specialist or refund specialist for leukodystrophy workup as a cause of her strokes. Therapy Discussed with medical Will likely require inpatient rehab
--- NOTE | 2018-07-06 12:05 | P.PN ---
Subjective Interval history: awake and alert seen with family at bedside more interactive no complains Physical Exam Vital signs: Vital Signs 07/05/18 16:00 07/05/18 20:00 07/05/18 23:49 Temperature 97.4 F L 97.7 F 96.6 F L Pulse Rate 67 64 67 Respiratory Rate 18 18 20 Blood Pressure 142/68 H 157/74 H 152/72 H Pulse Oximetry 97 93 L 94 L 07/06/18 00:00 07/06/18 04:00 07/06/18 08:00 Temperature 96 F L 98.1 F Pulse Rate 67 78 78 Respiratory Rate 20 16 Blood Pressure 140/67 133/73 Pulse Oximetry 94 L 94 L Intake & Output 07/05/18 07/06/18 07/06/18 18:59 06:59 18:59 Intake Total 480 / 480 200 / 200 Output Total 200 / 200 400 / 400 Balance 280 / 280 -200 / -200 Weight 71.1 kg Intake: Oral 480 / 480 200 / 200 Output: Urine 200 / 200 400 / 400 Other: Date of Last Bowel Movement 07/05/18 # Bowel Movements 3 Narrative: GENERAL: in NAD, sitting up working with therapy SKIN: Warm and dry. HEAD: Atraumatic. Normocephalic. EYES: Pupils equal and round. No scleral icterus. ENT: No nasal bleeding or discharge. Mucous membranes pink and moist. NECK: Trachea midline. No JVD. CARDIOVASCULAR: Regular rate and rhythm. RESPIRATORY: No accessory muscle use. GASTROINTESTINAL: Abdomen soft, non-tender, nondistended. MUSCULOSKELETAL: alert disfluency, slow speech, facial hypovolemia, no involuntary movements, no gaze deviations OU 3 2 mm bilaterally no facial asymmetry able raise upper extremity gravity no drift mild dystaxia reduced fine finger movements. Mild bilateral paraparesis although able to raise no drop both lower extremity gravity further sensory examination limited gait testing limited msr 1-2+ sym, no clonus, planterflexor, PSYCHIATRIC: Calm pleasant Results - Labs CBC & Chem 7: 07/03/18 06:43 07/05/18 06:47 - Procedures NONE Assessment and Plan - Assessment (1) Acute UTI Code(s): N39.0 - Urinary tract infection, site not specified Status: Acute (2) Altered mental status Code(s): R41.82 - Altered mental status, unspecified Status: Acute (3) Hypertensive urgency Code(s): I16.0 - Hypertensive urgency Status: Chronic (4) Hypokalemia Code(s): E87.6 - Hypokalemia Status: Chronic - Plan 63-year-old white female admitted for acute metabolic encephalopathy 07/03 seen with at bedside- they are here from [place] and is planning to go back there next week per = history of multiple CVA in the past and is almost toal assist for past 6 months- she needs assist with bathing, she does feed herself, he her and bathes her Acute CVA with bilateral cerebellar infarcts r/o Leukodystrophy r/o Genetic disorder Generalized weakness- chronic with progressive decline - baseline almost toal assist but per more decline lately History of previous multiple CVA - baseline almost total assist for 6 months Chronic cognitive impairment, at baseline the patient does not interact much. reports she has been declining lately. Possible vascular dementia CT 06/26, 06/30- marked atrophy and old left lacunar infarcts. -Continue ASA, Lipitor -Continue BP control -PT/OT following -speech therapy consult -continue PT/ST/OT eval - Echo unremarkable. Get carotid US- History of left CEA -continue on ASA - added Plavix Neurology consulted- d/w Dr. Thompson ? r/o Selvin Sach's disease- special blood works ordered -Hematology service ff to r/o hypercoaguable state HTN- better readings Impression: Uncontrolled during hospitalization; requiring Cardene drip for control 07/02-Cardene drip off -Continue Amlodipine 5mg BID -Continue Carvedilol 3.125mg BID -Continue Hydralazine 75mg TID -Continue Lisinopril 20mg BID -Continue PRN Clonidine Coronary artery disease, hyperlipidemia Impression: echo unremarkable -Continue ASA, BB, MACEY, statin ID Klebsiella UTI Impression: Klebsiella on urine culture - S/P Ciprofloxacin course today HYpokalmeia- improved -Will monitor and replete as needed -Monitor BMP GI prophylaxis: PPI. Stool softener PRN constipation. DVT PPx: Lovenox Code Status: Full Code speecxh therapy consult- cognitive and speech dietitian consult CM brian for DC planning- need SNF- Kirill consulted- hopefully gets accepted - plan was for her to go back to [place] eventually
[2018-07-06 12:29] VITALS: PULSE 72
--- NOTE | 2018-07-06 15:49 | P.DS ---
Date of admission: 06/29/18 14:55 Primary care physician: Ko Gallegos MD Anticipated date of discharge: 07/06/18 Brief History from admission: 63-year-old white female being admitted for acute metabolic encephalopathy. History is limited as the patient is a poor historian. Obtained mainly from emergency room staff and . Patient was in her usual state of health until earlier this week when her says that she started being unable to ambulate with him despite her cane. Says that she now does not want to ambulate at all. Reportedly has a decreased appetite. Emergency room staff, she smelled of urine. Normally at baseline says she walks with him with a cane but has not done so for the past week. He denies headaches expressing any pain such as chest pain. Patient herself denies having any dysuria. says the patient has not had a major stroke 8 years ago. They are from [place] and they plan to go back there where they have more support with 2 of their grown children. Family history is unable to be obtained as the patient herself is an unreliable historian due to her chronic mental impairment. tells me that the patient used to be on medications for chronic medical conditions but says she was discontinued off of those in [place]. Emergency department patient was found to be hypertensive with a systolic greater than 220. Hypokalemic at 2.9. CT head was negative. Chest x-ray was straight and enlarged cardiac silhouette. They gave labetalol with improvement in her blood pressure which rebounded high again when I saw her with a diastolic around 115. Patient update on day of discharge: awake and alert motivated with getting stronger looking forward to more rehab DS: Diagnosis - Discharge Diagnosis (1) Acute UTI Status: Acute (2) Altered mental status Status: Acute (3) Hypertensive urgency Status: Chronic (4) Hypokalemia Status: Acute DS: Medications - Discharge Medications Prescriptions: aspirin 81 mg PO DAILY #30 tab atorvastatin 40 mg PO HS #30 tab carvedilol [Coreg] 3.125 mg PO BID #62 tab clonidine HCl [Catapres] 0.1 mg PO Q6H PRN #120 tab PRN Reason: Hypertension DS: Summary Hospital Course: 63-year-old white female admitted for acute metabolic encephalopathy they are here from [place] and is planning to go back there next week per = history of multiple CVA in the past and is almost total assist for past 6 months- she needs assist with bathing, she does feed herself, he her and bathes her Acute CVA with bilateral cerebellar infarcts r/o Leukodystrophy r/o Genetic disorder Generalized weakness- chronic with progressive decline - baseline almost toal assist but per more decline lately History of previous multiple CVA - baseline almost total assist for 6 months Chronic cognitive impairment, at baseline the patient does not interact much. reports she has been declining lately. Possible vascular dementia CT 06/26, 06/30- marked atrophy and old left lacunar infarcts. -Continue ASA, Lipitor -Continue BP control -PT/OT following -speech therapy consult -continue PT/ST/OT eval - Echo unremarkable. Get carotid US- History of left CEA -continue on ASA - added Plavix Neurology consulted- d/w Dr. Thompson ? r/o Selvin Sach's disease- special blood works ordered -Hematology service ff to r/o hypercoaguable state HTN- better readings Impression: Uncontrolled during hospitalization; requiring Cardene drip for control 07/02-Cardene drip off -Continue Amlodipine 5mg BID -Continue Carvedilol 3.125mg BID -Continue Hydralazine 75mg TID -Continue Lisinopril 20mg BID -Continue PRN Clonidine Coronary artery disease, hyperlipidemia Impression: echo unremarkable -Continue ASA, BB, MACEY, statin ID Klebsiella UTI Impression: Klebsiella on urine culture - S/P Ciprofloxacin course today HYpokalmeia- improved -Will monitor and replete as needed -Monitor BMP GI prophylaxis: PPI. Stool softener PRN constipation. DVT PPx: Lovenox Code Status: Full Code speecxh therapy consult- cognitive and speech dietitian consult ELIZABETH torres for DC planning- need SNF- Kirill consulted- hopefully gets accepted - plan was for her to go back to [place] eventually - Time Spent with Patient Total time spent providing and/or coordinating discharge services: Greater than 30 minutes - Quality: VTE Deep Vein Thrombosis/Pulmonary Embolism Present on Admission: No Exam Vital signs: Vital Signs 07/05/18 16:00 07/05/18 20:00 07/05/18 23:49 Temperature 97.4 F L 97.7 F 96.6 F L Pulse Rate 67 64 67 Respiratory Rate 18 18 20 Blood Pressure 142/68 H 157/74 H 152/72 H Pulse Oximetry 97 93 L 94 L 07/06/18 00:00 07/06/18 04:00 07/06/18 08:00 Temperature 96 F L 98.1 F Pulse Rate 67 78 78 Respiratory Rate 20 16 Blood Pressure 140/67 133/73 Pulse Oximetry 94 L 94 L 07/06/18 12:00 Temperature 97.3 F L Pulse Rate 72 Respiratory Rate 16 Blood Pressure 103/66 Pulse Oximetry 95 Intake & Output 07/05/18 07/06/18 07/06/18 18:59 06:59 18:59 Intake Total 480 / 480 200 / 200 Output Total 200 / 200 400 / 400 Balance 280 / 280 -200 / -200 Weight 71.1 kg Intake: Oral 480 / 480 200 / 200 Output: Urine 200 / 200 400 / 400 Other: Date of Last Bowel Movement 07/05/18 # Bowel Movements 3 Narrative: GENERAL: in NAD, sitting up working with therapy SKIN: Warm and dry. HEAD: Atraumatic. Normocephalic. EYES: Pupils equal and round. No scleral icterus. ENT: No nasal bleeding or discharge. Mucous membranes pink and moist. NECK: Trachea midline. No JVD. CARDIOVASCULAR: Regular rate and rhythm. RESPIRATORY: No accessory muscle use. GASTROINTESTINAL: Abdomen soft, non-tender, nondistended. MUSCULOSKELETAL: alert disfluency, slow speech, facial hypovolemia, no involuntary movements, no gaze deviations OU 3 2 mm bilaterally no facial asymmetry able raise upper extremity gravity no drift mild dystaxia reduced fine finger movements. Mild bilateral paraparesis although able to raise no drop both lower extremity gravity further sensory examination limited gait testing limited msr 1-2+ sym, no clonus, planterflexor, PSYCHIATRIC: Calm pleasant Results Procedures completed during hospitalization: NONE - Impressions ITS Impressions Chest X-Ray 06/26/18 13:19 CONCLUSION: Mildly prominent cardiac silhouette. No other acute cardiopulmonary disease identified. Head CT 06/30/18 00:00 CONCLUSION: 1. Marked atrophy and old left-sided lacunar infarcts. No acute hemorrhage or edema seen . Head MRI 07/03/18 00:00 CONCLUSION: 1. Acute infarcts of both cerebellar hemispheres without significant mass effect. 2. Severe chronic ischemic changes in the periventricular white matter with multiple remote lacunar infarcts in the white matter bilaterally. Also mild chronic ischemic demyelinization in the brainstem. Carotid Doppler Study 07/04/18 00:00 CONCLUSION: Stenosis on the left 50-60%. Negative for hemodynamically significant stenosis on the right CT angiography may be of benefit given the history. Discharge Plan - Discharge Disposition Patient Disposition: 62 Re[facility] Inpatient - Discharge Condition Condition: Stable - Discharge Order Discharge Orders: Discharge Order (Routine); Ordered 07/06/18 Ordered By: Jake Raymond - Discharge Details Anticipated Discharge Date: 07/06/18 - Physicians Team Primary Care Provider: Ko Gallegos Attending Provider: Jake Raymond Other Providers: [facility] ; Mian Joyce MD ; Tonya Ortiz MD
[2018-07-06 17:30] VITALS: BP 112/68; TEMP 98.1; O2SAT 97
[2018-07-08 15:52] LABS: Dil Russell Viper Venom Conf ( NEGATIVE (NEGATIVE); Dil Russell Viper Venom Time M ND (CORRECTED); Lupus Anticoagulant PTT Screen 42 seconds (< OR = 40)
[2018-07-08 18:15] LABS: Factor V Leiden Mutation Heterozygous (Negative); Protein C Antigen 94 % (70-150)
== END 2018-07-06 17:46 ==
LOC: NEDA 12:56 → NEPC 12:56 → NEDA 17:13 → N05 17:15 → UNDODISOB 06-29 15:03 → HIMC 06-30 18:00 → N04 07-02 22:22
PROVIDERS: ADMIT Internal Medicine; ATTEND Internal Medicine